=== PATIENT | male | born 1955 | race Caucasian/White ===

== ENCOUNTER 2020-07-17 20:20 | Inpatient (IN) | payer OTHER ==
[~2020-07-17] VITALS: Ht 160 cm; Wt 60.8 kg
--- NOTE | 2020-07-17 20:36 | NUR ---
ON ARRIVAL PT NOTED AT 50% ROOM AIR. PLACED PT ON 15LNRB IMPROVED TO 94%. DR. MEDINA AWARE. CALLED RT FOR HI FLOW, PER ER MD.
--- NOTE | 2020-07-17 20:38 | NUR ---
KHAI [phone]
[2020-07-17] MEDS ORDERED: CEFTRIAXONE 1GM BAG (ER ONLY) 50 ML IV ONE ×2 (20:39→21:00)
[2020-07-17] MEDS ORDERED: DEXAMETHASONE SOD PHOSPHATE 10 MG/ML VIAL ONE (20:40)
[2020-07-17] MEDS ORDERED: AZITHROMYCIN 500 MG VIAL ONE (20:40)
[2020-07-17] MEDS ORDERED: ONDANSETRON 4 MG TAB.RAPDIS ONE (20:41)
--- NOTE | 2020-07-17 20:41 | NUR ---
BIBRA FROM HOME FOR C/O SOB AND FLU LIKE SYMPTOMS FOR THE PAST FEW DAYS, AFEBRILE ON TRIAGE, NOT TESTED FOR COVID. PT WAS PLACED IN BED 5 AND OPLACED ON A MONITOR. ON NON- REBREATHER MASK . SATTING 98%.
[2020-07-17 20:46] LABS: BASOPHILS % (AUTO) 0.2 % (0.0-2.0); HEMATOCRIT 43 % (39-51); HEMOGLOBIN 14.7 g/dL (13.5-17.5); LYMPHOCYTES # (AUTO) 1.3 /CMM (0.8-4.8); MEAN CORPUSCULAR HGB CONC 34 g/dl (31.0-36.0); MEAN CORPUSCULAR VOLUME 98 fL (80-96); MONOCYTES # (AUTO) 0.6 /CMM (0.1-1.30); MONOCYTES % (AUTO) 7.1 % (2.0-12.0); NEUTROPHILS % (AUTO) 78.7 % (43.0-81.0); PLATELET COUNT (AUTO) 171 /CMM (150-450); RED BLOOD CELL COUNT(AUTO) 4.41 MIL/uL (4.5-6.0); WHITE BLOOD COUNT (AUTO) 8.9 K/uL (4.3-11.0)
--- NOTE | 2020-07-17 20:53 | NUR ---
URINE COLLECTED AND SENT TO LAB
[2020-07-17] MEDS ORDERED: DEXAMETHASONE SOD PHOSPHATE 10 MG/ML VIAL IV ONE (21:00)
[2020-07-17] MEDS ORDERED: IV NS 0.9% 500 ML IV ONE (21:00)
[2020-07-17] MEDS ORDERED: ONDANSETRON 4 MG TAB.RAPDIS SL ONE (21:00)
[2020-07-17] MEDS ORDERED: AZITHROMYCIN 500 MG in IV D5W 250 ML IV ONE (21:00)
--- NOTE | 2020-07-17 21:12 | NUR ---
covid and flu swab obtained and sent to lab
[2020-07-17 21:15] LABS: CALCIUM, SERUM 8.1 mg/dL (8.5-10.1); CARBON DIOXIDE 25 mmol/L (21-32); CHLORIDE 94 mmol/L (98-107); CREATININE 1.1 mg/dL (0.6-1.3); GLUCOSE 121 mg/dL (74-106); POTASSIUM 3.7 mmol/L (3.5-5.1); SODIUM SERUM 132 mmol/L (136-145); UREA NITROGEN, BLOOD 10 mg/dL (7-18)
--- NOTE | 2020-07-17 21:16 | NUR ---
ABG DRAWN BY RT AT BED SIDE
[2020-07-17 21:19] LABS: ABG BASE EXCESS -1.4 mmol/L; ABG OXYGEN SATURATION 97.6 % (92.0-98.5); ABG PCO2 22.9 mmHg (35.0-45.0); ABG PH 7.542 (7.350-7.450); AaDO2 585.1 mmHg; COHb 1.2 % (0.5-1.5); MetHb 0.5 % (0.0-1.5); O2Hb 95.9 % (94.0-97.0); SITE, ABG Right Radial; VENT MODE, BG 15 LNC
--- NOTE | 2020-07-17 21:22 | NUR ---
RT abg performed on [address] casillas.
--- NOTE | 2020-07-17 21:25 | NUR ---
LACTIC 2.4
[2020-07-17] MEDS ORDERED: ZOLPIDEM TARTRATE 5 MG TABLET PO PRN (21:30)
[2020-07-17] MEDS ORDERED: MAG HYDROX/AL HYDROX/SIMETH 30 ML UDC PO PRN (21:30)
[2020-07-17] MEDS ORDERED: ONDANSETRON HCL/PF 4 MG/2 ML VIAL IVP PRN (21:30)
[2020-07-17] MEDS: CEFTRIAXONE 1 G in IV D5W 50 ML IV SCH (21:30)
[2020-07-17] MEDS ORDERED: Z GUARD REMEDY 2 OZ OINT TP PRN (21:30)
[2020-07-17] MEDS: AZITHROMYCIN 500 MG in IV D5W 250 ML IV SCH (21:30)
[2020-07-17] MEDS ORDERED: MAGNESIUM HYDROXIDE 30 ML UDC PO PRN (21:30)
[2020-07-17 21:33] LABS: ALANINE AMINOTRANSFERASE 39 U/L (12-78); ALBUMIN 2.9 g/dL (3.4-5.0); ALKALINE PHOSPHATASE 81 U/L (46-116); ASPARTATE AMINOTRANSFERASE 67 U/L (15-37); B-TYPE NATRIURETIC PEPTIDE 919 PG/ML (0-125); BILIRUBIN,TOTAL 1.1 mg/dL (0.2-1.0); TOTAL PROTEIN, SERUM 7.7 g/dL (6.4-8.2)
[2020-07-17 22:45] LABS: D-DIMER 5.6 mg/L(FEU (0.17-0.50)
[2020-07-17 22:57] LABS: C-REACTIVE PROTEIN 9.4 mg/dL (0.0-0.9)
[2020-07-17 23:17] LABS: BILIRUBIN,DIRECT 0.4 mg/dL (0.0-0.2)
[2020-07-17 23:35] LABS: CREATINE KINASE, TOTAL 519 U/L (39-308); FERRITIN 3842 ng/mL (8-388)
[2020-07-17 23:38] LABS: C-REACTIVE PROTEIN 8.7 mg/dL (0.0-0.9)
--- NOTE | 2020-07-18 01:55 | NUR ---
CALLED AFTER HOUR PHARMACY TO VERIFY ADMITTING ORDERS
--- NOTE | 2020-07-18 04:33 | NUR ---
CALLED AFTER HOUR PHARMACY again TO VERIFY ADMITTING ORDERS
[2020-07-18] MEDS: IV 1/2NS 1000 ML 1,000 ML IV PRN ×2 (05:12→23:01)
[2020-07-18 08:47] LABS: HEMATOCRIT 45 % (39-51); HEMOGLOBIN 15.2 g/dL (13.5-17.5); LYMPHOCYTES # (AUTO) 0.9 /CMM (0.8-4.8); LYMPHOCYTES % (AUTO) 18.2 % (20.0-44.0); MEAN CORPUSCULAR HGB CONC 34 g/dl (31.0-36.0); MEAN CORPUSCULAR VOLUME 99 fL (80-96); MONOCYTES # (AUTO) 0.4 /CMM (0.1-1.30); MONOCYTES % (AUTO) 6.9 % (2.0-12.0); NEUTROPHILS # (AUTO) 3.9 /CMM (1.8-8.9); NEUTROPHILS % (AUTO) 74.9 % (43.0-81.0); PLATELET COUNT (AUTO) 167 /CMM (150-450); WHITE BLOOD COUNT (AUTO) 5.2 K/uL (4.3-11.0)
[2020-07-18] MEDS: DEXAMETHASONE SOD PHOSPHATE 10 MG/ML VIAL IV SCH (08:51)
[2020-07-18] MEDS: APIXABAN 5 MG TABLET PO SCH ×2 (08:52→17:20)
[2020-07-18] MEDS ORDERED: DEXAMETHASONE SOD PHOSPHATE 6 MG in IV D5W 50 ML IV SCH (09:00)
[2020-07-18 09:06] LABS: CALCIUM, SERUM 8.1 mg/dL (8.5-10.1); CREATININE 0.8 mg/dL (0.6-1.3); MAGNESIUM 2.6 mg/dL (1.8-2.4); PHOSPHORUS 4.4 mg/dL (2.5-4.9); POTASSIUM 3.9 mmol/L (3.5-5.1)
[2020-07-18] MEDS ORDERED: REMDESIVIR (CHARGED) 200 MG, *LOADING DOSE 1 EA in IV NS 0.9% 210 ML IV ONE (11:00)
--- NOTE | 2020-07-18 11:48 | NUR ---
PATIENT ON 15LPM VIA NRB WITH SPO2 95%, NO DISTRESS NOTED. UNABLE TO GIVE REMDESIVIR AT THIS TIME, NO IV PUMP AVAILABLE, REQUESTED FROM [facility].
--- NOTE | 2020-07-18 14:08 | NUR ---
PROVIDED FOOD TRAY. PATIENT REFUSING PLASMA BECAUSE HE'S JEHOVAS WITNESS. INFORMED AYAN SAUCEDA DNP.
[2020-07-18 15:37] LABS: D-DIMER 13.87 mg/L(FEU (0.17-0.50)
--- NOTE | 2020-07-18 20:16 | NUR ---
pt remains in bed, able to prone, breathing even and unlabored on 12 NC, no report of distress or discomfort. med given will continue to monitor
[2020-07-18] MEDS: CEFTRIAXONE 1 G in IV D5W 50 ML IV SCH (20:31)
[2020-07-18] MEDS: AZITHROMYCIN 500 MG in IV D5W 250 ML IV SCH (20:33)
[2020-07-18 22:48] LABS: THYROID STIMULATING HORMONE 0.233 uIU/mL (0.358-3.74)
--- NOTE | 2020-07-19 01:39 | NUR ---
PT ASSISTED TO BEDSIDE COMODE, BREATHIGN EVEN AND UNLABORED ON 10L NON REBREATHER, NO COMPLAINT OF PAIN OR DISCOMFORT
[2020-07-19 04:01] LABS: BASOPHILS % (AUTO) 0.1 % (0.0-2.0); HEMATOCRIT 41 % (39-51); HEMOGLOBIN 13.8 g/dL (13.5-17.5); LYMPHOCYTES # (AUTO) 0.5 /CMM (0.8-4.8); LYMPHOCYTES % (AUTO) 6.3 % (20.0-44.0); MEAN CORPUSCULAR HGB CONC 34 g/dl (31.0-36.0); MEAN CORPUSCULAR VOLUME 99 fL (80-96); MONOCYTES # (AUTO) 0.7 /CMM (0.1-1.30); MONOCYTES % (AUTO) 9.4 % (2.0-12.0); NEUTROPHILS # (AUTO) 6.2 /CMM (1.8-8.9); NEUTROPHILS % (AUTO) 84.2 % (43.0-81.0); PLATELET COUNT (AUTO) 191 /CMM (150-450); RED BLOOD CELL COUNT(AUTO) 4.14 MIL/uL (4.5-6.0); WHITE BLOOD COUNT (AUTO) 7.4 K/uL (4.3-11.0)
[2020-07-19 04:20] LABS: ALBUMIN 2.4 g/dL (3.4-5.0); BILIRUBIN,DIRECT 0.4 mg/dL (0.0-0.2); BILIRUBIN,TOTAL 1.1 mg/dL (0.2-1.0); CALCIUM, SERUM 8.4 mg/dL (8.5-10.1); CREATININE 0.9 mg/dL (0.6-1.3); POTASSIUM 4.5 mmol/L (3.5-5.1); TOTAL PROTEIN, SERUM 6.5 g/dL (6.4-8.2)
--- NOTE | 2020-07-19 05:42 | NUR ---
called in report to Roland mark
[2020-07-19 06:35] VITALS: BP 145/92
--- NOTE | 2020-07-19 06:35 | NUR ---
COPPER FLOTATION OPERATOR NOTES PATIENT TRANSFERRED FROM ER VIA ACLS PROTOCOL. ON 15L NONREBREATHER; PULSE OX READING 89%; BREATHING LABORED WITH SHORTNESS OF BREATH. PATIENT DENIES PAIN AT THIS TIME. TELE MONITOR READING NSR, HEART RATE 77. IV PRESENT ON RIGHT AC, SIZE 18, INTACT & PATENT WITH 1/2 NS RUNNING AT 75 ML/HR. SAFETY MEASURES IN PLACE AND PATIENT'S NEEDS MET. BED LOCKED, HOB ELEVATED, SIDE RAILS X2, CALL LIGHT WITHIN REACH. WILL CONTINUE TO MONITOR. VITAL SIGNS - BP: 145/92, HR: 90, RR: 22, T: 98.3, SPO2: 89% ON 15L NONREBREATHER
--- NOTE | 2020-07-19 07:30 | NUR ---
GANG HEAD SAW OPERATOR CLOSING NOTES PATIENT AWAKE IN BED. A/OX4. ON 15L NONREBREATHER. IV REMAINS INTACT & PATENT WITH 1/2 NS RUNNING AT 75 ML/HR. SAFETY MEASURES IN PLACE AND PATIENT'S NEEDS MET. ENDORSED TO DAY SHIFT BAND SAW RUNNER AND PLAN OF CARE.
--- NOTE | 2020-07-19 07:35 | NUR ---
RN NOTES PATIENT NEW ADMIN RECEIVED ALERT ORIENTED X 4 PUPILS EQUAL AND REACTIVE TO LIGHT AND ACCOMMODATION. PT IS ON 15L OF OXYGEN VIA NONREBREATHER; PULSE OX READING 89%; BREATHING LABORED WITH SHORTNESS OF BREATH. PATIENT DENIES PAIN AT THIS TIME. TELE MONITOR READING NSR, HEART RATE 77. IV PRESENT ON RIGHT AC, SIZE 18, INTACT & PATENT NO REDNESS OR SWELLING AT SITE WITH 1/2 NS RUNNING AT 75 ML/HR. PT AMBULATORY WITHOUT ASSISTANCE, SKIN IS WARM AND DRY TO THE TOUCH NO EDEMA NOTED NO DISCOLORATION NOTED. ABDOMEN IS NON TENDER NON DISTENDED UPON PALPATION ACTIVE BOWEL SOUNDS HEARD IN ALL FOUR QUADRANTS UPON AUSCULTATION. LUNGS SOUNDS ARE DIMINISHED BILATERALLY UPON AUSCULTATION CHEST MOVEMENTS ARE SYMMETRICAL. SAFETY MEASURES IN PLACE AND PATIENT'S NEEDS MET. BED LOCKED, HOB ELEVATED, SIDE RAILS X2, CALL LIGHT WITHIN REACH. WILL CONTINUE TO MONITOR.
[2020-07-19 08:00] VITALS: BP 145/80
[2020-07-19] MEDS ORDERED: ENSURE ENLIVE 237 ML LIQUID (VANILLA) PO SCH (10:00)
[2020-07-19] MEDS: DEXAMETHASONE SOD PHOSPHATE 10 MG/ML VIAL IV SCH (10:51)
[2020-07-19] MEDS: APIXABAN 5 MG TABLET PO SCH ×2 (10:51→17:37)
[2020-07-19] MEDS: REMDESIVIR (CHARGED) 100 MG in IV NS 0.9% 230 ML IV SCH (11:28)
[2020-07-19 12:00] VITALS: BP 139/79
--- NOTE | 2020-07-19 18:09 | NUR ---
RN NOTES PATIENT ALERT ORIENTED X 4 PUPILS EQUAL AND REACTIVE TO LIGHT AND ACCOMMODATION. PT IS ON 15L OF OXYGEN VIA NONREBREATHER; PULSE OX READING 89%; BREATHING LABORED WITH SHORTNESS OF BREATH. PATIENT DENIES PAIN AT THIS TIME. IV PRESENT ON RIGHT AC, SIZE 18, INTACT & PATENT NO REDNESS OR SWELLING AT SITE WITH 1/2 NS RUNNING AT 75 ML/HR. PT AMBULATORY WITHOUT ASSISTANCE, SKIN IS WARM AND DRY TO THE TOUCH NO EDEMA NOTED NO DISCOLORATION NOTED. CALL LIGHT WITHIN REACH ALL NURSING NEEDS MET WILL ENDORSE CARE TO NEXT SHIFT NURSE Addendum: 07/19/20 at 2000 by SEAMUS MERLOS RN PT IS ON NON REBREATHER MASK WITH O2 AT 15L.DENIES SOB AND PT IS CALMLY DENYING ANY DISTRESS.DENIES PAIN.PT HAS BRP WITH O2 TANK.TOLERATING WELL.CALL LIGHT PLACED WITHIN REACH.
[2020-07-19] MEDS: IV 1/2NS 1000 ML 1,000 ML IV PRN (18:53)
[2020-07-19 20:54] VITALS: BP 126/75
[2020-07-19 21:00] VITALS: BP 126/75
--- NOTE | 2020-07-19 21:00 | NUR ---
TIRE SHOP MECHANIC NOTES RECEIVED REPORT FROM SEAMUS MERLOS RN,PATIENT ON BED A/O X4,BREATHING NON LABORED,ON NRB MASK AT 15L,O2 SAT 100%,SALINE LOCK RIGHT AC INTACT AND PATENT.AMBULATE WITH STEADY GAIT.PER REPORT,PATIENT IS JEHOVAS WITNESS,NO BLOOD TRANSFUSION.ISOLATION FOR DROPLET INFECTION,COVID + BOTH PCR AND RAPID.CALL LIGHT IN REACH,NEEDS ANTICIPATED.
[2020-07-19] MEDS: CEFTRIAXONE 1 G in IV D5W 50 ML IV SCH (21:35)
[2020-07-19] MEDS: AZITHROMYCIN 500 MG in IV D5W 250 ML IV SCH (21:40)
[2020-07-20] VITALS (7 sets, daily range): BP systolic 104–145; BP diastolic 67–84
--- NOTE | 2020-07-20 02:00 | NUR ---
MEDICAL OFFICER PSYCHIATRY NOTES NOTED SLIGHT REDNESS ON IV SITE.NEW SALINE LOCK PLACE ON LEFT FORE ARM #22.IVF INFUSING VIA IV PUMP.
--- NOTE | 2020-07-20 06:46 | NUR ---
CURTAIN FITTER NOTES SLEPT WITH INTERVALS,NO SOB NOTED,LATEST O2 SAT 96%.IVF INFUSING WELL ON LFA.STILL ON NRB MASK.IN BNO ACUTE DISTRESS.WILL ENDORSE TO DAY NURSE FOR PAWAN.
[2020-07-20 07:07] LABS: ALBUMIN 2.3 g/dL (3.4-5.0); BILIRUBIN,DIRECT 0.4 mg/dL (0.0-0.2); CALCIUM, SERUM 7.8 mg/dL (8.5-10.1); CREATININE 0.7 mg/dL (0.6-1.3); POTASSIUM 3.6 mmol/L (3.5-5.1); TOTAL PROTEIN, SERUM 6.2 g/dL (6.4-8.2)
--- NOTE | 2020-07-20 07:57 | NUR ---
RN NOTES PATIENT RECEIVED ALERT ORIENTED X 4 PUPILS EQUAL AND REACTIVE TO LIGHT AND ACCOMMODATION. PT IS ON 15L OF OXYGEN VIA NONREBREATHER; OX READING 89%; BREATHING IS NOT LABORED NO SHORTNESS OF BREATH. PATIENT DENIES PAIN AT THIS TIME. IV PRESENT ON RIGHT AC, SIZE 22, INTACT & PATENT NO REDNESS OR SWELLING AT SITE PT AMBULATORY WITHOUT ASSISTANCE, SKIN IS WARM AND DRY TO THE TOUCH NO EDEMA NOTED NO DISCOLORATION NOTED. BED LOCKED IN POSITION CALL LIGHT WITHIN REACH ALL NEEDS MET AT THIS TIME WILL CONTINUE TO MONITOR
[2020-07-20] MEDS: APIXABAN 5 MG TABLET PO SCH (09:27)
[2020-07-20] MEDS: DEXAMETHASONE SOD PHOSPHATE 10 MG/ML VIAL IV SCH (09:27)
[2020-07-20] MEDS: REMDESIVIR (CHARGED) 100 MG in IV NS 0.9% 230 ML IV SCH (11:21)
[2020-07-20] MEDS: ENOXAPARIN SODIUM 40 MG/0.4 ML DISP.SYRIN SQ SCH (17:46)
[2020-07-20] MEDS: IV 1/2NS 1000 ML 1,000 ML IV PRN (18:27)
--- NOTE | 2020-07-20 19:15 | NUR ---
RN NOTES: RECEIVED AWAKE ON BED, ON NON REBREATHER MASK AT 15L/MIN , IV CANNULA ON THE LEFT HAND G#22 INTACT AND PATENT IVF OF NS AT 75 ML/HR ONGOING., AMBULATORY, ABLE TO MAKE NEEDS KNOWN, ORIENTED TO UNIT AND STAFF, FALL,SAFETY AND ASPIRATION PRECAUTION OBSERVED,BE DLOW AND LOCKED, CALL LIGHT KEPT WITHIN EASY REACH.
--- NOTE | 2020-07-20 19:35 | NUR ---
ON 2ND BAG OF REMDESIVIR ,ROCEPHIN IV AND ZITHROMAX THERAPY.WITH NO A/R NOTED.NO C/O NAUSEA OR BLEEDING,SWELLING OR REDNESS ON THE IV SITE IN THE LT HAND.GOES TO THE TOILET WITH O2 AT 15L NRB MASK.
[2020-07-20] MEDS: AZITHROMYCIN 500 MG in IV D5W 250 ML IV SCH (22:28)
[2020-07-20] MEDS: CEFTRIAXONE 1 G in IV D5W 50 ML IV SCH (22:28)
[2020-07-21] VITALS (7 sets, daily range): BP systolic 125–139; BP diastolic 55–92
--- NOTE | 2020-07-21 03:31 | NUR ---
RN NOTES: ABLE TO SLEEP AND REST KEPT ON CLOSE WATCH SPO2 RANGE 90-91% NO SOB, KEPT ON SEMI FOWLERS POSITION.
--- NOTE | 2020-07-21 05:04 | NUR ---
RN NOTES: -AROUND 0245 ABLE TO AMBULATE ONCE GOING TO THE BATHROOM WITH ASSISTANCE, SPO2 90-91%, WHEN ASKED HOW HE FEEL, HE SAID "IM OK"NO SOB NOTED, KEPT ON CLOSE WATCH, NEEDS ATTENDED, KEPT CALL LIGHT WITHIN EASY REACH.
--- NOTE | 2020-07-21 05:38 | NUR ---
RN NOTES: SPO2 IS FLUCTUATING 87-88% WITH 15L/MIN NON [id number] MASK,HE IMPROVED A LITTLE WHEN HE WAS PLACE IN LEFT SIDE LYING POSITION SPO2 INCREASED 90%, RT NOTIFIED. -HI FLOW OXYGEN INITIATED AT 40 LITER IN 100% O2 , LATEST SPO2-95%.
--- NOTE | 2020-07-21 07:25 | NUR ---
RN NOTES: ASSISTED GOING TO THE BATHROOM, HE SAID HE WANTS TO DO BM, KEPT IN NON REBREATHER WHILE GOING TO THE BATHROOM,ACTIVITY TOLERATED,ON CLOSE WATCH.ENDORSED FOR CONTINUITY OF CARE FOR BLOOD TEST IN THE MORNING.
--- NOTE | 2020-07-21 08:00 | NUR ---
RN NOTES PATIENT RECEIVED ALERT ORIENTED X 4 PT IS ON 40L OF 0XYGEN VIA HIGH LOW; OX READING 96; BREATHING IS NOT LABORED NO SHORTNESS OF BREATH. PATIENT DENIES PAIN AT THIS TIME. IV PRESENT ON RIGHT AC, SIZE 22, INTACT & PATENT NO REDNESS OR SWELLING AT SITE PT AMBULATORY WITHOUT ASSISTANCE. BED LOCKED IN POSITION CALL LIGHT WITHIN REACH ALL NEEDS MET AT THIS TIME WILL CONTINUE TO MONITOR
[2020-07-21 08:23] LABS: ALBUMIN 2.3 g/dL (3.4-5.0); BILIRUBIN,DIRECT 0.4 mg/dL (0.0-0.2); CALCIUM, SERUM 7.5 mg/dL (8.5-10.1); CREATININE 0.6 mg/dL (0.6-1.3); POTASSIUM 3.6 mmol/L (3.5-5.1); TOTAL PROTEIN, SERUM 5.7 g/dL (6.4-8.2)
[2020-07-21] MEDS: ASPIRIN 81 MG TAB.CHEW PO SCH (09:09)
[2020-07-21] MEDS: DEXAMETHASONE SOD PHOSPHATE 10 MG/ML VIAL IV SCH (09:10)
[2020-07-21] MEDS: IV 1/2NS 1000 ML 1,000 ML IV PRN (11:49)
[2020-07-21] MEDS: REMDESIVIR (CHARGED) 100 MG in IV NS 0.9% 230 ML IV SCH (12:02)
[2020-07-21] MEDS: ENOXAPARIN SODIUM 40 MG/0.4 ML DISP.SYRIN SQ SCH (17:27)
--- NOTE | 2020-07-21 19:05 | NUR ---
RN NOTES PATIENT ALERT ORIENTED X 4 PT IS ON 40L OF 0XYGEN VIA HIGH LOW; OX READING 96; BREATHING IS NOT LABORED NO SHORTNESS OF BREATH. PATIENT DENIES PAIN AT THIS TIME. IV PRESENT ON RIGHT AC, SIZE 22, INTACT & PATENT NO REDNESS OR SWELLING AT SITE PT AMBULATORY WITHOUT ASSISTANCE. BED LOCKED IN POSITION CALL LIGHT WITHIN REACH ALL NEEDS MET AT THIS TIME WILL WILL ENDORSE CARE TO ON COMING NURSE Addendum: 07/21/20 at 1999 by IRENE RUBIN RN REMDESIVIR THERAPY.WITH NO A/R NOTED.NO C/O NAUSEA OR BLEEDING,SWELLING OR REDNESS ON THE IV SITE IN THE LT HAND.
--- NOTE | 2020-07-21 19:15 | NUR ---
RN OPENING NOTES Pt on bed, on HFNC @ 40LPM, saturating well. Pt denies any discomfort at this time. On tele monitor with NSR noted. Kept on bed clean, dry and comfortable. On fall and aspiration precautions. Will continue to monitor accordingly.
[2020-07-21] MEDS ORDERED: AZITHROMYCIN 250 MG TABLET PO SCH (21:00)
[2020-07-21] MEDS: CEFTRIAXONE 1 G in IV D5W 50 ML IV SCH (21:45)
[2020-07-22] VITALS: BP 130/73
--- NOTE | 2020-07-22 02:15 | NUR ---
REPORTS RECEIVED FROM BOBBY FIGUEROA FOR CONTINUITY OF CARE.
--- NOTE | 2020-07-22 02:30 | NUR ---
RECEIVED PATIENT IN BED, ASLEEP. NO S/S OF DISTRESS NOTED. CALL LIGHT WITHIN REACH. BED IN LOWEST AND LOCKED POSITION. ON HFNC AT 40L/ MIN.
[2020-07-22] MEDS: IV 1/2NS 1000 ML 1,000 ML IV PRN ×2 (03:12→17:32)
[2020-07-22 04:00] VITALS: BP 167/98
[2020-07-22] MEDS: ACETAMINOPHEN 325 MG TABLET PO PRN (05:19)
--- NOTE | 2020-07-22 06:29 | NUR ---
FOOD AND NUTRITION SUPERVISOR CLOSING NOTES: PATIENT IN BED,AWAKE, A/O X4. HOB ELEVATED AT ALL TIMES. CALL LIGHT WITHIN REACH. BED IN LOWEST AND LOCKED POSITION. BED ALARM ON. FEBRILE-100.1, TYLENOL 650MG PO GIVEN AT 0519, RECHECKED AT THIS TIME-99.8. PATIENT ABLE TO TURN TO SIDES. ON HFNC WITH 94% O2 SATURATION. URINAL AT THE BEDSIDE. CONTINUOUS PULSE OXIMETER MONITORING AT THE BEDSIDE.
[2020-07-22 06:33] LABS: BASOPHILS % (AUTO) 0.1 % (0.0-2.0); EOSINOPHILS % (AUTO) 0.2 % (0.0-6.0); HEMATOCRIT 38 % (39-51); HEMOGLOBIN 12.7 g/dL (13.5-17.5); LYMPHOCYTES # (AUTO) 0.4 /CMM (0.8-4.8); LYMPHOCYTES % (AUTO) 3.1 % (20.0-44.0); MEAN CORPUSCULAR HGB CONC 34 g/dl (31.0-36.0); MEAN CORPUSCULAR VOLUME 98 fL (80-96); MONOCYTES # (AUTO) 0.2 /CMM (0.1-1.30); NEUTROPHILS # (AUTO) 11.6 /CMM (1.8-8.9); NEUTROPHILS % (AUTO) 94.6 % (43.0-81.0); PLATELET COUNT (AUTO) 84 /CMM (150-450); RED BLOOD CELL COUNT(AUTO) 3.84 MIL/uL (4.5-6.0); WHITE BLOOD COUNT (AUTO) 12.3 K/uL (4.3-11.0)
[2020-07-22 06:56] LABS: ALBUMIN 2.2 g/dL (3.4-5.0); BILIRUBIN,DIRECT 0.4 mg/dL (0.0-0.2); CALCIUM, SERUM 7.5 mg/dL (8.5-10.1); CREATININE 0.7 mg/dL (0.6-1.3); POTASSIUM 3.7 mmol/L (3.5-5.1); TOTAL PROTEIN, SERUM 5.7 g/dL (6.4-8.2)
[2020-07-22 08:00] VITALS: BP 103/78
--- NOTE | 2020-07-22 08:00 | NUR ---
INDUSTRIAL INSULATOR OPENING NOTES RECEIVED PT ON BED, AAOX4, RESPONSIVE TO ALL STIMULI. NO PRESENCE OF ACUTE RESPIRATORY DISTRESS, ON HIGH FLOW 60 LPM, SOB AND DESATURATION DURING EXERTION LOWEST AT 65% PER REPORT. ABD SOFT AND NON DISTENDED WITH ACTIVE BOWEL SOUNDS. DENIES PAIN AND DISCOMFORT. SKIN WARM TO TOUCH AND DRY. IV SITE AT LEFT HAND PATENT IN FLUSHING, NO S/SX OF INFILTRATION. RUNNING 1/2 NS AT 75 ML/HR. TELE MONITOR SHOWS NSR 94. COVID POSITIVE, PPE UTILIZED PER HOSPITAL PROTOCOL. BED IN LOW LOCKED POSITION, SRX2 FOR SAFETY, CALL LIGHT WITHIN REACH. WILL CONT TO MONITOR CARE.
[2020-07-22] MEDS: ASPIRIN 81 MG TAB.CHEW PO SCH (08:06)
[2020-07-22] MEDS: DEXAMETHASONE SOD PHOSPHATE 10 MG/ML VIAL IV SCH (08:06)
[2020-07-22 08:50] LABS: LYMPHOCYTES % (MANUAL) 1 % (16-48); NEUTROPHILS % (MANUAL) 99 (42-76)
--- NOTE | 2020-07-22 09:42 | NUR ---
FABRIC SOURCER NOTES PER RT. HIGH FLOW O2 REDUCED TO 40 LPM SATING 96%.
--- NOTE | 2020-07-22 10:51 | NUR ---
COLLAR WORKER NOTES REMDESIVIR IV DUE AT 11 AM FOLLOWED UP WITH THE PHARMACY.
[2020-07-22] MEDS: REMDESIVIR (CHARGED) 100 MG in IV NS 0.9% 230 ML IV SCH (11:58)
[2020-07-22 12:00] VITALS: BP 148/92
[2020-07-22 16:00] VITALS: BP 128/62
--- NOTE | 2020-07-22 16:15 | NUR ---
BENDING SHED WORKER NOTES LOVENOX DUE AT 1700 NOT GIVEN DUE TO LOW PLATELET OF 84 TODAY, WITH CHANGES FROM 191 ON 07/21/20. NO OBSERVED BLEEDING TO PATIENT. WILL CONT TO MONITOR.
[2020-07-22] MEDS: ENOXAPARIN SODIUM 40 MG/0.4 ML DISP.SYRIN SQ SCH (16:16)
--- NOTE | 2020-07-22 19:03 | NUR ---
INTERIOR MECHANIC CLOSING NOTES PT AAOX4. TOLERATING HIGH FLOW 40 AT 96%, FIO2 @100%, DESATURATION LOW 40% IN EXERTION(AMBULATION, TRANSFER). BM TODAY. DENIES PAIN AND DISCOMFORT. NO NEW SKIN BREAKDOWN. IV SITE AT LEFT HAND #22. SITE WITH NO S/SX OF INFILTRATION. COVID+ WITH PPE UTILIZED PROPERLY. TELE MONITOR SHOWS NSR TO SINUS TACHYCARDIA HIGHEST 130. ALL CARE ATTENDED. ENDORSED CARE TO NEXT SHIFT.
--- NOTE | 2020-07-22 19:30 | NUR ---
SPIKE MACHINE FEEDER NOTES PATIENT IN BED, AWAKE, ALERT AND ORIENTED X 4. BREATHING EVEN AND UNLABORED ON HIGH FLOW NC 40LPM. SHOWS NO SIGNS OF ACUTE RESPIRATORY DISTRESS. NO ACUTE PAIN. TELE NRS AND ST. IV ON L HAND 22G RUNNING 1/2 NS AT 75ML/HR. SHOWS NO SIGNS OF INFILTRATION, NO REDNESS. ITS CLEAN DRY AND INTACT. SAFETY PRECAUTIONS IN PLACE. BED IN LOWEST POSITION, LOCKED, AND CALL LIGHT KEPT WITHIN REACH. WILL CONTINUE TO MONITOR.
[2020-07-22 20:00] VITALS: BP 131/84
[2020-07-22] MEDS: CEFTRIAXONE 1 G in IV D5W 50 ML IV SCH (20:40)
--- NOTE | 2020-07-22 21:00 | NUR ---
BILLING ASSOCIATE NOTES RT CHANGED O2 TO 60LPM. PT WAS DESAT AFTER AMBULATING TO THE BATHROOM. O2 WAS IN THE 70'S.
[2020-07-23] VITALS: BP 107/61
[2020-07-23 04:00] VITALS: BP 148/56
[2020-07-23] MEDS: IV 1/2NS 1000 ML 1,000 ML IV PRN (05:59)
--- NOTE | 2020-07-23 06:33 | NUR ---
HERBICIDE SERVICE SALES REPRESENTATIVE NOTES PATIENT IN BED, ASLEEP, ALERT AND ORIENTED X 4. BREATHING EVEN AND UNLABORED ON HIGH FLOW NC 60LPM. SHOWS NO SIGNS OF ACUTE RESPIRATORY DISTRESS. NO ACUTE PAIN. TELE NRS AND ST. IV ON L HAND 22G RUNNING 1/2 NS AT 75ML/HR. SHOWS NO SIGNS OF INFILTRATION, NO REDNESS. ITS CLEAN DRY AND INTACT. ALL DUE MEDICATIONS GIVEN. SAFETY PRECAUTIONS IN PLACE. BED IN LOWEST POSITION, LOCKED, AND CALL LIGHT KEPT WITHIN REACH. WILL ENDORSE TO ONCOMING NURSE.
[2020-07-23 06:44] LABS: ALBUMIN 2.2 g/dL (3.4-5.0); BILIRUBIN,DIRECT 0.4 mg/dL (0.0-0.2); BILIRUBIN,TOTAL 1.2 mg/dL (0.2-1.0); CALCIUM, SERUM 7.9 mg/dL (8.5-10.1); CREATININE 0.7 mg/dL (0.6-1.3); POTASSIUM 4.2 mmol/L (3.5-5.1); TOTAL PROTEIN, SERUM 5.8 g/dL (6.4-8.2)
--- NOTE | 2020-07-23 07:15 | NUR ---
SHOE STICKS REPAIRER NOTES PATIENT RECEIVED IN BED, ALERT AND ORIENTED X 4, ON HIGHFLOW NASAL CANNULA AND NON-REBREATHER MASK. INFORMED PATIENT TO LAY DOWN IN PRONE POSITION. ON PROPERTY CLAIM REP, SINUS TACHY, 123. PATIENT SKIN WARM AND DRY TO TOUCH, IV ACCESS INTACT AND PATENT, INFUSING IV FLUIDS AT THIS TIME. PATIENT PRESENTING WITH NO PAIN AT THIS TIME. SAFETY PRECAUTIONS IMPLEMENTED WITH BED LOCKED, BILATERAL SIDE RAILS UP, BED ALARM ON, BED IN THE LOWEST POSITION, AND CALL LIGHT WITHIN EASY REACH, WILL CONTINUE TO MONITOR.
[2020-07-23 08:00] VITALS: BP 138/79
[2020-07-23] MEDS: ASPIRIN 81 MG TAB.CHEW PO SCH (09:28)
[2020-07-23] MEDS: DEXAMETHASONE SOD PHOSPHATE 10 MG/ML VIAL IV SCH (09:29)
[2020-07-23 12:00] VITALS: BP_SYST 136; BP_SYST 138; BP_DIAS 80
[2020-07-23] MEDS ORDERED: IV D5/ 0.9% NACL 1,000 ML IV PRN (12:00)
[2020-07-23] MEDS: APIXABAN 2.5 MG TABLET PO SCH ×2 (12:27→16:46)
[2020-07-23 16:00] VITALS: BP 119/71
--- NOTE | 2020-07-23 18:44 | NUR ---
COSTUMING SUPERVISOR NOTES PATIENT IN BED RESTING IN PRONE POSITION, ALERT AND ORIENTED X 4, ON HIGHFLOW NASAL CANNULA AND NON-REBREATHER MASK. ON LINE PERSON, SINUS TACHY, 100'S. PATIENT SKIN KEPT CLEAN, WARM AND DRY TO TOUCH, IV ACCESS INTACT AND PATENT, INFUSING IV FLUIDS D5 0/9% NS AT 50ml/hr AT THIS TIME. PATIENT PRESENTING WITH NO PAIN AT THIS TIME, NO CHEST PAIN OR PALPITATIONS AT THIS TIME. MET ALL OF PATIENT'S NEEDS. SAFETY PRECAUTIONS IMPLEMENTED WITH BED LOCKED, BILATERAL SIDE RAILS UP, BED ALARM ON, BED IN THE LOWEST POSITION, AND CALL LIGHT WITHIN EASY REACH. WILL ENDORSE PLAN OF CARE TO UPCOMING RN.
--- NOTE | 2020-07-23 19:30 | NUR ---
NEWS DEPARTMENT INTERN NOTES PATIENT IN BED, RESTING IN PRONE POSITION, ALERT AND ORIENTED X 4. BREATHING EVEN AND UNLABORED ON HIGH FLOW NC 60LPM. SHOWS NO SIGNS OF ACUTE RESPIRATORY DISTRESS. NO ACUTE PAIN. TELE NRS AND ST. IV ON L HAND 22G RUNNING D5 NS AT 75ML/HR. SHOWS NO SIGNS OF INFILTRATION, NO REDNESS. ITS CLEAN DRY AND INTACT. SAFETY PRECAUTIONS IN PLACE. BED IN LOWEST POSITION, LOCKED, AND CALL LIGHT KEPT WITHIN REACH. WILL CONTINUE TO MONITOR.
[2020-07-23 20:00] VITALS: BP 117/81
[2020-07-23] MEDS: CEFTRIAXONE 1 G in IV D5W 50 ML IV SCH (21:17)
--- NOTE | 2020-07-24 07:09 | NUR ---
LIFE INSURANCE SALES NOTES PATIENT IN BED, ASLEEP, ALERT AND ORIENTED X 4. BREATHING EVEN AND UNLABORED ON HIGH FLOW NC 60LPM. SHOWS NO SIGNS OF ACUTE RESPIRATORY DISTRESS. NO ACUTE PAIN. TELE NRS AND ST. IV ON R HAND 22G RUNNING D5 AT 75ML/HR. SHOWS NO SIGNS OF INFILTRATION, NO REDNESS. ITS CLEAN DRY AND INTACT. ALL DUE MEDICATIONS GIVEN. SAFETY PRECAUTIONS IN PLACE. BED IN LOWEST POSITION, LOCKED, AND CALL LIGHT KEPT WITHIN REACH. WILL ENDORSE TO ONCOMING NURSE.
[2020-07-24 07:28] LABS: HEMATOCRIT 39 % (39-51); HEMOGLOBIN 13.1 g/dL (13.5-17.5); LYMPHOCYTES # (AUTO) 0.5 /CMM (0.8-4.8); LYMPHOCYTES % (AUTO) 3.3 % (20.0-44.0); MEAN CORPUSCULAR HGB CONC 33 g/dl (31.0-36.0); MEAN CORPUSCULAR VOLUME 100 fL (80-96); MONOCYTES # (AUTO) 0.1 /CMM (0.1-1.30); MONOCYTES % (AUTO) 0.5 % (2.0-12.0); NEUTROPHILS # (AUTO) 15.3 /CMM (1.8-8.9); NEUTROPHILS % (AUTO) 96.2 % (43.0-81.0); PLATELET COUNT (AUTO) 51 /CMM (150-450); RED BLOOD CELL COUNT(AUTO) 3.96 MIL/uL (4.5-6.0); WHITE BLOOD COUNT (AUTO) 15.9 K/uL (4.3-11.0)
[2020-07-24 07:54] LABS: ALBUMIN 2.2 g/dL (3.4-5.0); BILIRUBIN,TOTAL 1.4 mg/dL (0.2-1.0); CALCIUM, SERUM 8.1 mg/dL (8.5-10.1); CREATININE 0.6 mg/dL (0.6-1.3); POTASSIUM 4.3 mmol/L (3.5-5.1); TOTAL PROTEIN, SERUM 6.1 g/dL (6.4-8.2)
--- NOTE | 2020-07-24 07:55 | NUR ---
MULTIFOCAL LENS ASSEMBLER OPEN NOTES PATIENT SLEEPING PRONE POSITION IN BED, WITH NO SIGNS OF DISTRESS ON HIGH FLOW 60 L 90-94%. IV R HAND #22G INTACT RUNNING D5 NS AT 50 ML/HR. NO COMPLAIN OF PAIN AT THIS TIME. TELE MONITOR. SAFETY MEASURES ARE APPLIED, BED IS IN LOW POSITION SIDE RAILS UP X 2. CALL LIGHT WITHIN REACH. WILL CONTINUE TO MONITOR.
[2020-07-24 08:00] VITALS: BP 100/72
[2020-07-24] MEDS: APIXABAN 2.5 MG TABLET PO SCH (09:00)
[2020-07-24] MEDS: ASPIRIN 81 MG TAB.CHEW PO SCH (09:00)
--- NOTE | 2020-07-24 09:19 | NUR ---
HELD ASPIRIN AND ELIQUIS PER AYAN DRILLER AND REAMER, PATIENT PLATELET COUNT IS LOW 51. WILL CONTINUE TO MONITOR.
[2020-07-24] MEDS: DEXAMETHASONE SOD PHOSPHATE 10 MG/ML VIAL IV SCH (09:22)
[2020-07-24 09:55] LABS: LYMPHOCYTES % (MANUAL) 4 % (16-48); MONOCYTES % (MANUAL) 2 % (0-11.0); NEUTROPHILS % (MANUAL) 94 (42-76)
[2020-07-24 12:00] VITALS: BP 113/71
--- NOTE | 2020-07-24 12:40 | NUR ---
ADMINISTER TYLENOL TEMP 98.9. WILL CONTINUE TO MONITOR.
[2020-07-24] MEDS: ACETAMINOPHEN 325 MG TABLET PO PRN ×2 (12:45→21:53)
--- NOTE | 2020-07-24 13:44 | NUR ---
TEMP 98.1 F ORAL
[2020-07-24 16:00] VITALS: BP 142/67
--- NOTE | 2020-07-24 19:35 | NUR ---
RISK CONTROL FIELD REPRESENTATIVE OPENING NOTES PATIENT SLEEPING, AWAKENS TO NAME/TOUCH. A/OX4. ON 60L/MIN HIGH FLOW OXYGEN AND NONREBREATHER MASK; PULSE OX 95%; BREATHING LABORED; NO ACUTE RESPIRATORY DISTRESS NOTED. NO C/O PAIN. TELE MONITOR READING SINUS TACH, HEART RATE 108. IV PRESENT ON LEFT WRIST, SIZE 24, INTACT & PATENT, HEP LOCKED. CONTACT/DROPLET PRECAUTIONS IN PLACE FOR COVID 19. SAFETY MEASURES IN PLACE AND PATIENT'S NEEDS MET. BED LOCKED, HOB ELEVATED, SIDE RAILS X2, CALL LIGHT WITHIN REACH. WILL CONTINUE TO MONITOR.
--- NOTE | 2020-07-24 19:44 | NUR ---
UNDERWRITING CLERKS SUPERVISOR CLOSED NOTES PATIENT SLEEPING PRONE POSITION IN BED, WITH NO SIGNS OF DISTRESS ON HIGH FLOW 60 L 90-94%. IV L WRIST HAND #24G INTACT SL. NO COMPLAIN OF PAIN AT THIS TIME. TELE MONITOR ST. PATIENT CURRENTLY ON NPO. PATIENT KEPT CLEAN AND DRY. ALL NEEDS, CARE, TREATMENT,AND MEDICATIONS WERE ADMINISTERED ANTICIPATED PER ORDER. SAFETY MEASURES ARE APPLIED, BED IS IN LOW POSITION SIDE RAILS UP X 2. CALL LIGHT WITHIN REACH WILL ENDORSE TO THE STEAM CLOTHES PRESS OPERATOR NURSE.
[2020-07-24 20:00] VITALS: BP 108/65
[2020-07-24 21:24] LABS: BILIRUBIN,URINE NEGATIVE (NEGATIVE); COLOR,URINE YELLOW (YELLOW); LEUKOCYTE ESTERASE ,URINE NEGATIVE (NEGATIVE); NITRITE, URINE NEGATIVE (NEGATIVE); PROTEIN,URINE TRACE mg/dl (NEGATIVE); UGLUCOSE >=1000 mg/dL (NEGATIVE); UROBILINOGEN,URINE 0.2 EU/dL (0.2)
[2020-07-24 21:44] LABS: RBC,URINE 0-2 /HPF (0-2)
[2020-07-24 21:45] LABS: BACTERIA,URINE Rare /HPF (None Seen); SQUAMOUS EPITHELIAL CELL,UR Rare /HPF (None Seen); WBC,URINE 0-2 /HPF (0-3)
[2020-07-24] MEDS: CEFTRIAXONE 1 G in IV D5W 50 ML IV SCH (21:52)
[2020-07-25] VITALS: BP 122/68
--- NOTE | 2020-07-25 00:30 | NUR ---
WEIGHMASTER LEAD NOTE PATIENT SLEEPING IN PRONE POSITION. NO S/S OF ACUTE RESPIRATORY DISTRESS; ON 60LPM HIGHFLOW AND NONREBREATHER; PULSE OX READING 98%. TELE MONITOR READING SINUS RHYTHM, HEART RATE 77. WILL CONTINUE TO MONITOR.
[2020-07-25 04:00] VITALS: BP 107/72
--- NOTE | 2020-07-25 07:04 | NUR ---
FIRE EATER CLOSING NOTES PATIENT SLEEPING IN PRONE POSITION. A/OX4. ON 60L/MIN HIGH FLOW OXYGEN AND NONREBREATHER MASK; PULSE OX 98%; NO ACUTE RESPIRATORY DISTRESS NOTED. NO S/S PAIN NOTED. TELE MONITOR READING SINUS RHYTHM. IV PRESENT ON LEFT WRIST, SIZE 24, INTACT & PATENT, HEP LOCKED. SAFETY MEASURES IN PLACE AND PATIENT'S NEEDS MET. BED LOCKED, SIDE RAILS X2, CALL LIGHT WITHIN REACH. WILL ENDORSE TO DAY SHIFT RN PLAN OF CARE.
[2020-07-25 07:07] LABS: IMMUNOGLOBULIN A, SERUM 408 mg/dL (61-437); IMMUNOGLOBULIN G, SERUM 1418 mg/dL (603-1613)
--- NOTE | 2020-07-25 07:45 | NUR ---
AUTOMOBILE SALESMAN OPENING NOTES RECEIVED PATIENT RESTING IN BED, A/OX4. ON 60L/MIN HIGH FLOW OXYGEN AND NONREBREATHER MASK; PULSE OX 95%; BREATHING LABORED; NO ACUTE RESPIRATORY DISTRESS NOTED. NO C/O PAIN. TELE MONITOR READING SINUS TACH, HEART RATE 108. IV TO LEFT WRIST, #24, INTACT & PATENT KEPT HEP LOCKED. CONTACT/DROPLET PRECAUTIONS IN PLACE FOR COVID 19. ALL SAFETY MEASURES IN PLACE, BED IS AT LOW POSITION AND LOCKED WITH HOB ELEVATED, AND SIDE RAILS UPX2, CALL LIGHT WITHIN REACH. WILL CONTINUE TO MONITOR.
[2020-07-25 08:00] VITALS: BP 105/55
[2020-07-25 08:02] LABS: BASOPHILS % (AUTO) 0.1 % (0.0-2.0); HEMATOCRIT 42 % (39-51); HEMOGLOBIN 13.5 g/dL (13.5-17.5); LYMPHOCYTES # (AUTO) 0.5 /CMM (0.8-4.8); LYMPHOCYTES % (AUTO) 2.7 % (20.0-44.0); MEAN CORPUSCULAR HGB CONC 32 g/dl (31.0-36.0); MEAN CORPUSCULAR VOLUME 100 fL (80-96); MONOCYTES # (AUTO) 0.3 /CMM (0.1-1.30); MONOCYTES % (AUTO) 1.6 % (2.0-12.0); NEUTROPHILS # (AUTO) 16.5 /CMM (1.8-8.9); NEUTROPHILS % (AUTO) 95.6 % (43.0-81.0); RED BLOOD CELL COUNT(AUTO) 4.17 MIL/uL (4.5-6.0); WHITE BLOOD COUNT (AUTO) 17.3 K/uL (4.3-11.0)
[2020-07-25 08:10] LABS: T3, FREE 1.6 pg/mL (2.0-4.4)
[2020-07-25 08:32] LABS: PLATELET COUNT (AUTO) 42 /CMM (150-450)
--- NOTE | 2020-07-25 08:32 | NUR ---
LAB CRITICAL REPORT RECEIVED CALL FROM NANDO FROM LAB WITH CRITICAL PLATELET VALUE OF 42 MD NOTIFIED
[2020-07-25] MEDS: ASPIRIN 81 MG TAB.CHEW PO SCH (08:55)
[2020-07-25] MEDS: DEXAMETHASONE SOD PHOSPHATE 10 MG/ML VIAL IV SCH (08:55)
[2020-07-25 11:19] LABS: *ANA ANTI-CENTROMERE B AB <0.2 AI (0.0-0.9); *ANA ANTI-DNA(DS) AB, QN <1 IU/mL (0-9); *ANA ANTI-JO-1 <0.2 AI (0.0-0.9); *ANA ANTICHROMATIN ANTIBODY <0.2 AI (0.0-0.9); *ANA RNP ANTIBODIES 0.8 AI (0.0-0.9); *ANA SJOGREN'S ANTI-SS-A <0.2 AI (0.0-0.9); *ANA SJOGREN'S ANTI-SS-B <0.2 AI (0.0-0.9); *ANAANTI-SCLERODERMA-70 AB <0.2 AI (0.0-0.9); *ANASMITH AB <0.2 AI (0.0-0.9)
[2020-07-25 11:43] LABS: LYMPHOCYTES % (MANUAL) 1 % (16-48); MONOCYTES % (MANUAL) 3 % (0-11.0); NEUTROPHILS % (MANUAL) 96 (42-76)
[2020-07-25 12:00] VITALS: BP 122/77
[2020-07-25] MEDS: HYDROCODONE/APAP 5/325MG TABLET PO PRN (15:30)
[2020-07-25 17:06] LABS: *SPE A/G RATIO 0.7 (0.7-1.7); *SPE ALBUMIN 2.4 g/dL (2.9-4.4); *SPE ALPHA-1-GLOBULIN 0.5 g/dL (0.0-0.4); *SPE ALPHA-2-GLOBULIN 0.6 g/dL (0.4-1.0); *SPE GLOBULIN, TOTAL 3.5 g/dL (2.2-3.9); *SPE M-SPIKE Not Observed g/dL (Not Observed); *SPEGAMMA GLOBULIN 1.4 g/dL (0.4-1.8)
--- NOTE | 2020-07-25 18:14 | NUR ---
PLAIN CLOTHES POLICE OFFICER CLOSING NOTES PATIENT RESTING IN BED, A/OX4. CONTINUES ON 60L/MIN HIGH FLOW OXYGEN, PULSE OX RANGING FROM 90-95%; NO ACUTE RESPIRATORY DISTRESS NOTED. NO S/S PAIN NOTED. TELE MONITOR READING SINUS RHYTHM. IV PRESENT ON LEFT WRIST #24, PATENT AND INTACT KEPT HEP LOCKED. ALL SAFETY MEASURES IN PLACE AND PATIENT'S NEEDS MET. BED IS AT LOWEST AND LOCKED POSITION WITH SIDE RAILS UPX2 AND CALL LIGHT WITHIN REACH. WILL ENDORSE TO ONCOMING SHIFT
--- NOTE | 2020-07-25 19:23 | NUR ---
BLOW MOULDING MACHINE OPERATOR: CONTINUITY OF CARE Patient in bed, awake. On High flow Oxygen, tolerating well, denies SOB. Refused to turned and repositioned at this time. No c/o pain. Contact/Droplet isolation maintained.
[2020-07-25 20:00] VITALS: BP 125/82
[2020-07-25 20:10] VITALS: BP 125/82
[2020-07-25] MEDS: CEFTRIAXONE 1 G in IV D5W 50 ML IV SCH (21:07)
[2020-07-26] VITALS (8 sets, daily range): BP systolic 108–123; BP diastolic 47–84
--- NOTE | 2020-07-26 06:02 | NUR ---
PLASMA SPECIALIST: END OF SHIFT REPORT Sinus Tach HR 118 in the Tele monitor. Patient is A/O x3 forgetful. Oxygen saturation in low 90's no c/o SOB, no cough. Remains on High Flow NC 60L, well tolerated. On IV Rocephin, afebrile. Had BM this shift. No c/o pain, no N/V. Contact, Droplet isolation with Eye shield protection maintained. Will endorse to oncoming RN.
[2020-07-26 06:05] LABS: CALCIUM, SERUM 8.6 mg/dL (8.5-10.1); CREATININE 0.8 mg/dL (0.6-1.3); POTASSIUM 4.6 mmol/L (3.5-5.1)
[2020-07-26 06:23] LABS: BASOPHILS # (AUTO) 0.1 /CMM (0.0-0.2); BASOPHILS % (AUTO) 0.3 % (0.0-2.0); HEMATOCRIT 41 % (39-51); HEMOGLOBIN 13.2 g/dL (13.5-17.5); LYMPHOCYTES # (AUTO) 0.3 /CMM (0.8-4.8); LYMPHOCYTES % (AUTO) 1.6 % (20.0-44.0); MEAN CORPUSCULAR HGB CONC 33 g/dl (31.0-36.0); MEAN CORPUSCULAR VOLUME 100 fL (80-96); MONOCYTES # (AUTO) 0.4 /CMM (0.1-1.30); MONOCYTES % (AUTO) 1.8 % (2.0-12.0); NEUTROPHILS # (AUTO) 19.8 /CMM (1.8-8.9); NEUTROPHILS % (AUTO) 96.3 % (43.0-81.0); RED BLOOD CELL COUNT(AUTO) 4.05 MIL/uL (4.5-6.0); WHITE BLOOD COUNT (AUTO) 20.6 K/uL (4.3-11.0)
[2020-07-26 06:39] LABS: PLATELET COUNT (AUTO) 39 /CMM (150-450)
--- NOTE | 2020-07-26 06:58 | NUR ---
OFFSET PRESSMAN: CRITICAL LAB VALUE Platelet 39. Notified Anayeli Freire NP. Will f/u with Oncology in am, and no blood thinner. Will endorse to oncoming RN.
--- NOTE | 2020-07-26 07:30 | NUR ---
RETURNED ITEM CLERK NOTES PT IN BED, AWAKE, ALERT AND ORIENTED, NO COMPLAINT OF PAIN, ON HIGH FLOW O2 ORDERED, TOLERATING WELL, NO SOB NOTED, CALL LIGHT WITHIN REACH.
[2020-07-26 08:12] LABS: IMMUNOGLOBULIN M, SERUM 69 mg/dL (20-172)
[2020-07-26] MEDS: DEXAMETHASONE SOD PHOSPHATE 10 MG/ML VIAL IV SCH (08:59)
--- NOTE | 2020-07-26 18:17 | NUR ---
WELLNESS GUIDE NOTES PT IN BED, AWAKE, ALERT AND VERBALLY RESPONSIVE, NO COMPLAINT OF PAIN, NOT IN DISTRESS, CALL LIGHT WITHIN REACH, ASSISTED WITH DINNER, PM CARE PROVIDED, ALL NEEDS ATTENDED.
--- NOTE | 2020-07-26 19:45 | NUR ---
EXPANDED DUTY DENTAL ASSISTANT OPENING NOTES RECEIVED REPORT FROM BOBBY KHALIL; WILL CONT PLAN OF CARE
[2020-07-26] MEDS: CEFTRIAXONE 1 G in IV D5W 50 ML IV SCH (20:30)
[2020-07-27] VITALS: BP 104/68
[2020-07-27 04:00] VITALS: BP 105/76
[2020-07-27 06:45] LABS: BASOPHILS % (AUTO) 0.2 % (0.0-2.0); HEMATOCRIT 42 % (39-51); HEMOGLOBIN 13.4 g/dL (13.5-17.5); LYMPHOCYTES # (AUTO) 0.3 /CMM (0.8-4.8); LYMPHOCYTES % (AUTO) 1.5 % (20.0-44.0); MEAN CORPUSCULAR HGB CONC 32 g/dl (31.0-36.0); MEAN CORPUSCULAR VOLUME 101 fL (80-96); MONOCYTES # (AUTO) 0.4 /CMM (0.1-1.30); MONOCYTES % (AUTO) 2.1 % (2.0-12.0); NEUTROPHILS # (AUTO) 20.1 /CMM (1.8-8.9); NEUTROPHILS % (AUTO) 96.2 % (43.0-81.0); RED BLOOD CELL COUNT(AUTO) 4.12 MIL/uL (4.5-6.0)
[2020-07-27 06:55] LABS: PLATELET COUNT (AUTO) 48 /CMM (150-450)
--- NOTE | 2020-07-27 07:36 | NUR ---
SUPERVISOR BOILERMAKING SHOP CLOSING NOTES PATIENT RESTING IN BED COMFORTABLY; A/OX3, SOMETIMES FORGETFUL; PATIENT TOLERATING 60LPM VIA HIGHFLOW ON 100% FIO2, NO SOB NOTED; BREATHING EVENLY AND UNLABORED; NO DISTRESS NOTED; PATIENT DENIES PAIN; PATIENT ABLE TO MAKE NEEDS KNOWN; ISOLATION PRECAUTIONS MAINTAINTED; TELE MONITOR READS SINUS RHYTHM - SINUS TACHY; R FA # 22 S/L INTACT AND PATENT; ALL NEEDS RENDERED; SAFETY PRECAUTIONS IMPLEMENTED; WILL ENDORSE PAWAN TO ONCOMING SHIFT
--- NOTE | 2020-07-27 07:45 | NUR ---
TELE/RN OPENING NOTE THE PATIENT IS RECEIVED IN BED, ALERT AND ORIENTED X2. ON HIGHFLOW OXYGEN AT 60 L AND FIO2 AT 100%. DENIES SOB. TELE BOX READING IS SINUS TACHYCARDIA 119. DENIES PAIN. RFA G 22 PATENT AND SALINE LOCKED. BED LOW AND LOCKED. SIDE RAILS UP X3. CALL LIGHT WITHIN REACH. WILL CONTINUE TO MONITOR.
[2020-07-27 08:00] VITALS: BP 104/72
[2020-07-27 08:33] LABS: LYMPHOCYTES % (MANUAL) 1 % (16-48); MONOCYTES % (MANUAL) 1 % (0-11.0); NEUTROPHILS % (MANUAL) 98 (42-76)
[2020-07-27] MEDS: DEXAMETHASONE SOD PHOSPHATE 10 MG/ML VIAL IV SCH (09:13)
[2020-07-27 12:00] VITALS: BP 114/78
[2020-07-27 16:00] VITALS: BP 121/80
--- NOTE | 2020-07-27 18:41 | NUR ---
TELE/RN CLOSING NOTE THE PATIENT IS ALERT AND ORIENTED X3 WITH EPISODES OF FORGETFULNESS. THE PATIENT IS ON HIGHFLOW OXYGEN AT 60 L AND FIO2 AT 100%. DENIES SOB. TELE BOX READING IS SINUS TACHYCARDIA.. DENIES PAIN. RFA G 22 PATENT AND SALINE LOCKED. BED LOW AND LOCKED. SIDE RAILS UP X3. CALL LIGHT WITHIN REACH. WILL CONTINUE TO MONITOR.
--- NOTE | 2020-07-27 19:30 | NUR ---
MS2/RN RECEIVED PATIENT IN BED AWAKE, ALERT, ORIENTED, COMFORTABLE, NO C/O PAIN, NO DISTRESS NOTED, CALL LIGHT IN REACH. ON HIGH FLOW O2 WITH NRM. FALL PRECAUTIONS PER PROTOCOL IMPLEMENTED. WILL MONITOR.
[2020-07-27 20:00] VITALS: BP 126/83
--- NOTE | 2020-07-27 23:39 | NUR ---
MS2/RN UNABLE TO ADMINISTER ROCEPHIN AT 2130, IV WAS OUT. INSERTED IV AT RT. F/A G22.
[2020-07-27] MEDS: CEFTRIAXONE 1 G in IV D5W 50 ML IV SCH (23:40)
[2020-07-28] VITALS (7 sets, daily range): BP systolic 108–124; BP diastolic 69–83
--- NOTE | 2020-07-28 06:06 | NUR ---
MS2/RN PATIENT IS AWAKE, SITTING ON THE BSC, COMFORTABLE, NO DISTRESS NOTED, ALL NEEDS ATTENDED AT THIS THIS TIME, REFUSED BLOOD DRAW. WILL CONTINUE TO MONITOR.
--- NOTE | 2020-07-28 07:10 | NUR ---
INDUSTRIAL CONVEYOR BELT REPAIRER OPENING NOTES RECEIVED PT AWAKE AT THIS TIME. PT X 1-2 WITH PERIODS OF CONFUSION. NO SOB NOTED, NO S/S OF ANY ACUTE DISTRESS NOTED. NO C/O PAIN AT THIS TIME. RESPIRATIONS ARE EVEN AND UNLABORED WITH EQUAL RISE AND FALL IN CHEST. PT NOTED ON HIGH FLOW OXYGEN @60L WITH NON REBREATHER MASK, FIO2 @100. IV ACCESS NOTED IN RCC G#22 INTACT, PATENT AND FLUSHING WELL. SAFETY PRECAUTION IN PLACE AND MAINTAINED AT ALL TIMES. BED IN LOWEST LOCKED POSITION, HOB ELEVATED, SIDE RAILS UP X 2, CALL LIGHT AND TABLE WITHIN REACH. WILL CONTINUE TO MONITOR
[2020-07-28 08:39] LABS: EOSINOPHILS % (AUTO) 0.1 % (0.0-6.0); HEMATOCRIT 45 % (39-51); HEMOGLOBIN 13.9 g/dL (13.5-17.5); LYMPHOCYTES # (AUTO) 0.7 /CMM (0.8-4.8); LYMPHOCYTES % (AUTO) 3.3 % (20.0-44.0); MEAN CORPUSCULAR HGB CONC 31 g/dl (31.0-36.0); MEAN CORPUSCULAR VOLUME 105 fL (80-96); MONOCYTES # (AUTO) 0.6 /CMM (0.1-1.30); MONOCYTES % (AUTO) 2.8 % (2.0-12.0); NEUTROPHILS % (AUTO) 93.8 % (43.0-81.0); PLATELET COUNT (AUTO) 71 /CMM (150-450); RED BLOOD CELL COUNT(AUTO) 4.27 MIL/uL (4.5-6.0); WHITE BLOOD COUNT (AUTO) 22.4 K/uL (4.3-11.0)
[2020-07-28 12:42] LABS: LYMPHOCYTES % (MANUAL) 5 % (16-48); MONOCYTES % (MANUAL) 3 % (0-11.0); NEUTROPHILS % (MANUAL) 92 (42-76)
--- NOTE | 2020-07-28 12:54 | NUR ---
RN NOTES TITRATED O2 PLACED PATIENT ON 15L NON REBREATHER MASK, O2 SAT WENT DOWN TO 79%. PLACED PATIENT BACK ON HI FLOW 60 L 100% WITH 15L NON REBREATHER MASK.
--- NOTE | 2020-07-28 19:00 | NUR ---
MILL LABORER CLOSING NOTES PT AWAKE IN BED AT THIS TIME. PT REMAINED STABLE THROUGHOUT SHIFT. ALL CARE, NEED, MEDICATIONS AND TREATMENT ADMINISTERED ANTICIPATED PER ORDER. PT KEPT CLEAN AND DRY. ASPIRATION AND SAFETY PRECAUTION IN PLACE AND MAINTAINED AT ALL TIMES. BED IN LOWEST LOCKED POSITION, HOB ELEVATED, SIDE RAILS UP X 2, CALL LIGHT AND TABLE WITHIN REACH. WILL ENDORSE TO SUCCESS COACH NURSE FOR PAWAN
--- NOTE | 2020-07-28 20:00 | NUR ---
IT BUSINESS ANALYST NOTES RECEIVED ON BED A/O X 4,BREATHING NON LABORED,ON HIGH FLOW OXYGEN AT 60LITERS,ALONG WITH NON RE BREATHER MASK AT 15LITERS,O2 SAT 97%.APPEARS WEAK,SALINE LOCK LEFT FORE ARM INTACT AND PATENT.ISOLATION FOR COVID 19 POSITIVE.ST-123 ON TELE MONITOR.WILL CONTINUE TO MONITOR STATUS.
[2020-07-28] MEDS: CEFTRIAXONE 1 G in IV D5W 50 ML IV SCH (21:15)
--- NOTE | 2020-07-28 21:30 | NUR ---
TELECOM ENGINEER NOTES DUE LORETA 1GM IVPB HUNG
[2020-07-29] VITALS: BP 106/84
[2020-07-29 04:00] VITALS: BP 117/86
--- NOTE | 2020-07-29 07:08 | NUR ---
RN MEDICARE OPENING NOTES RECEIVED PT AWAKE AT THIS TIME. PT X 1-2 SOMETIMES. NO SOB NOTED, NO S/S OF ANY ACUTE DISTRESS NOTED. NO C/O PAIN AT THIS TIME. RESPIRATIONS ARE EVEN AND UNLABORED WITH EQUAL RISE AND FALL IN CHEST. PT ON EXTERNAL CARDICA MONITOR READING ST IN THE 130S. PT NOTED ON HIGH FLOW OXYGEN @60L WITH NON REBREATHER MASK, FIO2 @100. IV ACCESS NOTED IN RFA G#22 INTACT, PATENT AND FLUSHING WELL. SAFETY PRECAUTION IN PLACE AND MAINTAINED AT ALL TIMES. BED IN LOWEST LOCKED POSITION, HOB ELEVATED, SIDE RAILS UP X 2, CALL LIGHT AND TABLE WITHIN REACH. WILL CONTINUE TO MONITOR
[2020-07-29 07:26] LABS: BASOPHILS % (AUTO) 0.2 % (0.0-2.0); EOSINOPHILS % (AUTO) 0.1 % (0.0-6.0); HEMATOCRIT 43 % (39-51); HEMOGLOBIN 13.7 g/dL (13.5-17.5); LYMPHOCYTES # (AUTO) 0.3 /CMM (0.8-4.8); LYMPHOCYTES % (AUTO) 1.6 % (20.0-44.0); MEAN CORPUSCULAR HGB CONC 32 g/dl (31.0-36.0); MEAN CORPUSCULAR VOLUME 104 fL (80-96); MONOCYTES # (AUTO) 0.2 /CMM (0.1-1.30); MONOCYTES % (AUTO) 1.3 % (2.0-12.0); NEUTROPHILS # (AUTO) 18.5 /CMM (1.8-8.9); NEUTROPHILS % (AUTO) 96.8 % (43.0-81.0); PLATELET COUNT (AUTO) 71 /CMM (150-450); RED BLOOD CELL COUNT(AUTO) 4.18 MIL/uL (4.5-6.0); WHITE BLOOD COUNT (AUTO) 19.1 K/uL (4.3-11.0)
--- NOTE | 2020-07-29 07:29 | NUR ---
FUEL ISLAND ATTENDANT NOTES WITH EPISODE OF CONFUSION,STILL ON HIGH FLOW AT 60L,FIO2 100%,NO BLOOD TRANSFUSION DUE TO JEHOVA'S WITNESS.ENDORSE TO IMMACULATE RN FOR PAWAN.
[2020-07-29 07:31] LABS: CALCIUM, SERUM 8.4 mg/dL (8.5-10.1); CREATININE 1.2 mg/dL (0.6-1.3); POTASSIUM 4.4 mmol/L (3.5-5.1)
[2020-07-29 07:45] LABS: D-DIMER > 35.20 mg/L(FEU (0.17-0.50)
[2020-07-29 08:00] VITALS: BP 115/87
[2020-07-29] MEDS: ASPIRIN 81 MG TAB.CHEW PO SCH (09:36)
--- NOTE | 2020-07-29 10:00 | NUR ---
ORDERS RECEIVED FROM DR MCGOVERN TO HAVE PT OFF NON REBREATHER MASK, MAINTAIN HIGH FLOW AND MONITOR. ORDERS CARRIED OUT, WILL CONTINUE TO MONITOR
[2020-07-29 12:00] VITALS: BP 137/85
--- NOTE | 2020-07-29 13:06 | NUR ---
DR MCGOVERN UPDATED ON PT's SATURATION BETWWEN 80%-84% ON ONLY HIGH FLOW. PER DR MCGOVERN ORDER, HAVE PT ON BOTH HIGH FLOW AND NON REBREATHER. WILL CONTINUE TO MONITOR Addendum: 07/29/20 at 1310 by STEPHANIE BECK RN DR MCGOVERN UPDATED ON PT's SATURATION BETWWEN 80%-84% ON ONLY HIGH FLOW. PER DR MCGOVERN ORDER, HAVE PT ON BOTH HIGH FLOW AND NON REBREATHER. ORDERS CARRIED OUT. WILL CONTINUE TO MONITOR
[2020-07-29 13:35] LABS: LYMPHOCYTES % (MANUAL) 2 % (16-48); MONOCYTES % (MANUAL) 2 % (0-11.0); NEUTROPHILS % (MANUAL) 96 (42-76)
--- NOTE | 2020-07-29 14:00 | NUR ---
MEGHA PT's DAUGHTER CALLED AND UPDATED. WILL CONTINUE WITH PLAN OF CARE
[2020-07-29] MEDS: ENOXAPARIN SODIUM 40 MG/0.4 ML DISP.SYRIN SQ SCH (17:47)
--- NOTE | 2020-07-29 19:05 | NUR ---
AIR TRAFFIC CONTROLLER CENTER CLOSING NOTES PT AWAKE IN BED AT THIS TIME. PT REMAINED STABLE THROUGHOUT SHIFT. ALL CARE, NEED, MEDICATIONS AND TREATMENT ADMINISTERED ANTICIPATED PER ORDER. PT KEPT CLEAN AND DRY. PT PRONED ABLE. ASPIRATION AND SAFETY PRECAUTION IN PLACE AND MAINTAINED AT ALL TIMES. BED IN LOWEST LOCKED POSITION, HOB ELEVATED, SIDE RAILS UP X 2, CALL LIGHT AND TABLE WITHIN REACH. WILL ENDORSE TO ENAMEL FINISHER NURSE FOR PAWAN
[2020-07-29 20:00] VITALS: BP 117/87
--- NOTE | 2020-07-29 20:00 | NUR ---
CO FOUNDER AND CHAIRMAN OPENING NOTES RECEIVED PATIENT AWAKE, ALERT AND ORIENTED X3 WITH PERIODS OF FORGETFULNESS. REORIENTATION PROVIDED. NO SOB NOTED, NO S/SX OF ANY ACUTE DISTRESS NOTED. DENIES PAIN OR DISCOMFORT AT THIS TIME. RESPIRATIONS ARE EVEN AND UNLABORED. PT REMAINS ON EXTERNAL WARDROBE COORDINATOR READING ST IN THE 115. PATIENT NOTED ON HIGH FLOW OXYGEN @60LPM WITH NON-REBREATHER MASK, FIO2 @100%. HOB ELEVATED. IV ACCESS NOTED IN RFA G#22 INTACT, PATENT AND FLUSHING WELL. SAFETY PRECAUTIONS IN PLACE. BED IN LOWEST LOCKED POSITION, SIDE RAILS UP X2, CALL LIGHT WITHIN REACH. WILL CONTINUE TO MONITOR.
[2020-07-29] MEDS: CEFTRIAXONE 1 G in IV D5W 50 ML IV SCH (20:34)
[2020-07-30] VITALS: BP 112/87
[2020-07-30 04:00] VITALS: BP 105/82
--- NOTE | 2020-07-30 06:15 | NUR ---
PAPER COLORER CLOSING NOTES PATIENT IN BED ASLEEP, AROUSES EASILY. NO SOB NOTED, NO S/SX OF ANY ACUTE DISTRESS NOTED. DENIES PAIN OR DISCOMFORT AT THIS TIME. RESPIRATIONS ARE EVEN AND UNLABORED. PT REMAINS ON EXTERNAL ACCOUNTS RECEIVABLE CLERK READING ST IN THE 116. PATIENT ON HIGH FLOW OXYGEN @60LPM WITH NON-REBREATHER MASK, FIO2 @100%. HOB ELEVATED. IV ACCESS NOTED IN RFA G#22 INTACT, PATENT AND FLUSHING WELL. SAFETY PRECAUTIONS IN PLACE. BED IN LOWEST LOCKED POSITION, SIDE RAILS UP X2, CALL LIGHT WITHIN REACH. WILL ENDORSE TO AM SHIFT FOR CONTINUITY OF CARE.
[2020-07-30 08:00] VITALS: BP 123/60
--- NOTE | 2020-07-30 08:02 | NUR ---
CUSTOMS CONSULTANT OPENING NOTE PATIENT IS IN BED RESTING COMFORTABLY. PATIENT IS IN NO ACUTE DISTRESS. NO SOB NOTED. PATIENT IS HIGH FLOW 60 LPM. HOB ELEVATED. PATIENT BREATHING IS EVEN AND UNLABORED. PATIENT IS ON THE SATURATION EQUIPMENT OPERATOR READING ST 123. PATIENT BED ALARM IS ON. SAFETY PRECAUTIONS ARE IN PLACE. PATIENT BED IS LOCKED AND IN THE LOWEST POSITION. CALL LIGHT WITHIN REACH. WILL CONTINUE TO MONITOR.
--- NOTE | 2020-07-30 08:04 | NUR ---
COSMETIC ACCOUNT COORDINATOR OPENING NOTE PATIENT IS IN BED RESTING COMFORTABLY. PATIENT IS IN NO ACUTE DISTRESS. NO SOB NOTED. PATIENT IS ON 15L NON REBREATHER MASK. HOB ELEVATED. PATIENT BREATHING IS EVEN AND UNLABORED. PATIENT IS ON THE GEAR DESIGN ENGINEER READING SB 50. PATIENT BED ALARM IS ON. SAFETY PRECAUTIONS ARE IN PLACE. PATIENT BED IS LOCKED AND IN THE LOWEST POSITION. CALL LIGHT WITHIN REACH. WILL CONTINUE TO MONITOR. Addendum: 07/30/20 at 0809 by NELSON PRATT RN DISREGARD PATIENT NOTE, WRONG PATIENT DOCUMENT.
--- NOTE | 2020-07-30 08:05 | NUR ---
STEAMER BLOCKER OPENING NOTE PATIENT IS IN BED RESTING COMFORTABLY. PATIENT IS IN NO ACUTE DISTRESS. NO SOB NOTED. PATIENT IS ON NON REBREATHER 15 LPM.. HOB ELEVATED. PATIENT BREATHING IS EVEN AND UNLABORED. PATIENT IS ON THE WINDOW TRIMMER APPRENTICE READING SR 68. PATIENT BED ALARM IS ON. SAFETY PRECAUTIONS ARE IN PLACE. PATIENT BED IS LOCKED AND IN THE LOWEST POSITION. CALL LIGHT WITHIN REACH. WILL CONTINUE TO MONITOR. Addendum: 07/30/20 at 0810 by NELSON PRATT RN DISREGARD PATIENT NOTE, WRONG PATIENT DOCUMENTED.
[2020-07-30] MEDS: ASPIRIN 81 MG TAB.CHEW PO SCH (08:23)
[2020-07-30 10:55] LABS: BASOPHILS % (AUTO) 0.1 % (0.0-2.0); EOSINOPHILS % (AUTO) 0.6 % (0.0-6.0); HEMATOCRIT 40 % (39-51); HEMOGLOBIN 12.6 g/dL (13.5-17.5); LYMPHOCYTES # (AUTO) 0.3 /CMM (0.8-4.8); LYMPHOCYTES % (AUTO) 1.7 % (20.0-44.0); MEAN CORPUSCULAR HGB CONC 31 g/dl (31.0-36.0); MEAN CORPUSCULAR VOLUME 105 fL (80-96); MONOCYTES % (AUTO) 0.3 % (2.0-12.0); NEUTROPHILS # (AUTO) 17.6 /CMM (1.8-8.9); NEUTROPHILS % (AUTO) 97.3 % (43.0-81.0); PLATELET COUNT (AUTO) 88 /CMM (150-450); RED BLOOD CELL COUNT(AUTO) 3.83 MIL/uL (4.5-6.0); WHITE BLOOD COUNT (AUTO) 18.1 K/uL (4.3-11.0)
[2020-07-30 11:40] LABS: CALCIUM, SERUM 8.3 mg/dL (8.5-10.1); CREATININE 1.1 mg/dL (0.6-1.3); POTASSIUM 4.3 mmol/L (3.5-5.1)
[2020-07-30 12:00] VITALS: BP 121/82
[2020-07-30 12:43] LABS: BAND % (MANUAL) 2 % (0.0-5.0); LYMPHOCYTES % (MANUAL) 3 % (16-48); MONOCYTES % (MANUAL) 1 % (0-11.0); NEUTROPHILS % (MANUAL) 94 (42-76)
[2020-07-30 16:00] VITALS: BP 124/84
[2020-07-30] MEDS: ENOXAPARIN SODIUM 40 MG/0.4 ML DISP.SYRIN SQ SCH (17:22)
--- NOTE | 2020-07-30 18:57 | NUR ---
RN CLOSING NOTE PATIENT IS IN BED RESTING COMFORTABLY. PATIENT IS IN NO ACUTE DISTRESS. NO SOB NOTED. PATIENT IS ON HIGH FLOW 60 LPM AND NON-REBREATHER MASK. HOB ELEVATED. PATIENT IS ON THE LEASE ADMINISTRATOR READING SINUS TACHYCARDIA 126. PATIENT KEPT CLEAN DRY AND COMFORTABLE. THROUGHOUT THE SHIFT. PATIENTS BED ALARM IS ON. PATIENTS BED IS LOCKED AND IN THE LOWEST POSITION. CALL LIGHT WITHIN REACH. ENDORSE TO THE RADIOLOGIC TECHNICIAN NURSE FOR PAWAN.
--- NOTE | 2020-07-30 19:40 | NUR ---
ALL PURPOSE CLERK NOTES RECEIVED REPORT FROM NELSON RN AND ARSLAN RN; WILL CONT PLAN OF CARE
[2020-07-30 20:00] VITALS: BP 130/86
[2020-07-30] MEDS: CEFTRIAXONE 1 G in IV D5W 50 ML IV SCH (20:30)
[2020-07-31] VITALS: BP 108/75
[2020-07-31 04:00] VITALS: BP_SYST 121; BP_DIAS 49; BP_DIAS 79
[2020-07-31 07:19] LABS: BASOPHILS # (AUTO) 0.1 /CMM (0.0-0.2); BASOPHILS % (AUTO) 0.3 % (0.0-2.0); EOSINOPHILS % (AUTO) 0.7 % (0.0-6.0); HEMATOCRIT 38 % (39-51); HEMOGLOBIN 12.4 g/dL (13.5-17.5); LYMPHOCYTES # (AUTO) 0.4 /CMM (0.8-4.8); LYMPHOCYTES % (AUTO) 2.2 % (20.0-44.0); MEAN CORPUSCULAR HGB CONC 32 g/dl (31.0-36.0); MEAN CORPUSCULAR VOLUME 103 fL (80-96); MONOCYTES # (AUTO) 0.2 /CMM (0.1-1.30); MONOCYTES % (AUTO) 1.1 % (2.0-12.0); NEUTROPHILS # (AUTO) 15.7 /CMM (1.8-8.9); NEUTROPHILS % (AUTO) 95.7 % (43.0-81.0); PLATELET COUNT (AUTO) 104 /CMM (150-450); RED BLOOD CELL COUNT(AUTO) 3.72 MIL/uL (4.5-6.0); WHITE BLOOD COUNT (AUTO) 16.5 K/uL (4.3-11.0)
--- NOTE | 2020-07-31 07:22 | NUR ---
CAN BANDER OPERATOR CLOSING NOTES PATIENT RESTING IN BED COMFORTABLY; A/OX2-3, WITH PERIODS OF CONFUSION; BREATHING EVENLY AND UNLABORED; NO SOB NOTED; TOLERATING 60LPM VIA HIGH FLOW NC WELL; TELE MONITOR READS SINUS TACHY; R FA #22 INTACT AND PATENT; TOLERATING IVF WELL; ISOLATION PRECAUTIONS MAINTAINED; SAFETY PRECAUTIONS IMPLEMENTED; ALL NEEDS RENDERED; WILL ENDORSE CONTINUITY OF CARE TO ONCOMING SHIFT
--- NOTE | 2020-07-31 07:40 | NUR ---
TELE/RN OPENING NOTES RECEIVED PATIENT ON BED AWAKE ALERT AND ORIENTED X 2-3. PATIENT IS ON HIGH FLOW AT 60LPM TOLERATING WELL. PATIENT IN NO APPARENT RESPIRATORY DISTRESS NOTED. NO COMPLAINED OF PAIN AT THIS TIME. WILL CONTINUE TO MONITOR.
[2020-07-31 08:00] VITALS: BP 112/41
[2020-07-31 08:15] LABS: ALBUMIN 2.2 g/dL (3.4-5.0); BILIRUBIN,TOTAL 0.5 mg/dL (0.2-1.0); CALCIUM, SERUM 8.1 mg/dL (8.5-10.1); CREATININE 0.9 mg/dL (0.6-1.3); POTASSIUM 4.3 mmol/L (3.5-5.1); TOTAL PROTEIN, SERUM 6.1 g/dL (6.4-8.2)
[2020-07-31 08:28] LABS: D-DIMER 18.33 mg/L(FEU (0.17-0.50)
[2020-07-31] MEDS: ASPIRIN 81 MG TAB.CHEW PO SCH (09:18)
[2020-07-31] MEDS: HYDROCODONE/APAP 5/325MG TABLET PO PRN (10:26)
[2020-07-31 12:00] VITALS: BP 108/74
[2020-07-31 16:00] VITALS: BP 131/85
[2020-07-31] MEDS: ENOXAPARIN SODIUM 40 MG/0.4 ML DISP.SYRIN SQ SCH (17:00)
--- NOTE | 2020-07-31 17:55 | NUR ---
TELE/RN NOTES PLATELET 104 HGB 12.4 HCT 38. LOVENOX SUBCUTANEOUS WAS WITHHELD.
--- NOTE | 2020-07-31 19:20 | NUR ---
machine cutter opening notes Received Pt from morning nurse. Pt is resting in bed comfortably. Pt is alert and orientedX2-3. Respiration on high flow @ 60 LPM with fio2 100%. Pt tolerating well. No SOB. No S/S of distress noted. Tele monitor showed sinus tachy HR at 126 bpm. IV site at RFA# 22 is clean, intact, flushes well and SL. Safety precautions is maintained. Bed at low position, brakes locked, side rails upX2, HOB elevated, urinal at the bedside and call light is within reach. Will continue to monitor.
--- NOTE | 2020-07-31 19:36 | NUR ---
TELE/RN CLOSING NOTES PATIENT IS ON BED. ALERT AND ORIENTED X 2-3. PATIENT IN NO APPARENT RESPIRATORY DISTRESS NOTED. NO COMPLAINED OF PAIN AT THIS TIME. PATIENT IS ON HIGH FLOW OXYGEN AT 60 LPM FI02 100% TOLERATING WELL. TELE MONITOR READING SINUS TACHY 126-130 BPM. IV ACCESS AT RIGHT FOREARM # 22 PATENT AND INTACT. SEEN AND EXAMINED BY MD WITH ORDERS MADE AND CARRIED OUT. ALL DUE MEDICATIONS WAS ORDERS. SAFETY PRECAUTIONS WAS IN PLACED. BED IN LOWEST POSITION AND LOCKED. SIDERAILS UP X2. CALL LIGHT WITHIN REACH. WILL ENDORSED TO FILTERING MACHINE TENDER HELPER FOR PAWAN.
[2020-07-31 20:00] VITALS: BP 125/83
[2020-08-01] VITALS (14 sets, daily range): BP systolic 98–136; BP diastolic 64–83
--- NOTE | 2020-08-01 07:00 | NUR ---
coloring room man closing notes Pt is resting in bed comfortably. Pt is alert and orientedX2-3. Respiration on high flow @ 60 LPM. Pt tolerating well. No SOB. No S/S of distress noted. VS is stable. Afebrile. Tele monitor showed sinus tachy HR at 112 bpm. IV site at RFA# 22 is clean, intact, flushes well and SL. Safety precautions is maintained. Bed at low position, brakes locked, side rails upX2, HOB elevated, urinal at the bedside and call light is within reach. Will endorse to morning nurse for PAWAN.
--- NOTE | 2020-08-01 07:15 | NUR ---
RN Notes Patient Received. Patient is noted in bed, awake, alert and oriented x3. Patient is noted with episodes of confusion. Patient continues on high flow O2 at 60LPM. Patient continues on telemonitor noted to be sinus tachy. IV site noted to RFA 22G patent and intact. Safety precautions in place. Bed in low position and locked. HOB elevated. Call light within reach. Will continue plan of care as ordered.
[2020-08-01 07:32] LABS: BASOPHILS % (AUTO) 0.1 % (0.0-2.0); EOSINOPHILS % (AUTO) 1.4 % (0.0-6.0); HEMATOCRIT 36 % (39-51); HEMOGLOBIN 11.6 g/dL (13.5-17.5); LYMPHOCYTES # (AUTO) 0.4 /CMM (0.8-4.8); LYMPHOCYTES % (AUTO) 2.7 % (20.0-44.0); MEAN CORPUSCULAR HGB CONC 32 g/dl (31.0-36.0); MEAN CORPUSCULAR VOLUME 102 fL (80-96); MONOCYTES # (AUTO) 0.3 /CMM (0.1-1.30); NEUTROPHILS # (AUTO) 14.6 /CMM (1.8-8.9); NEUTROPHILS % (AUTO) 93.8 % (43.0-81.0); PLATELET COUNT (AUTO) 110 /CMM (150-450); RED BLOOD CELL COUNT(AUTO) 3.52 MIL/uL (4.5-6.0); WHITE BLOOD COUNT (AUTO) 15.5 K/uL (4.3-11.0)
[2020-08-01 07:46] LABS: CREATININE 0.7 mg/dL (0.6-1.3); POTASSIUM 4.4 mmol/L (3.5-5.1)
[2020-08-01] MEDS: ASPIRIN 81 MG TAB.CHEW PO SCH (09:32)
[2020-08-01] MEDS: ENSURE ENLIVE 237 ML LIQUID (VANILLA) PO SCH ×2 (12:20→17:34)
[2020-08-01 15:13] LABS: ABG BASE EXCESS 3.4 mmol/L; ABG OXYGEN SATURATION 88.7 % (92.0-98.5); ABG PCO2 39.4 mmHg (35.0-45.0); ABG PO2 55.6 mmHg (75.0-100.0); COHb 1.4 % (0.5-1.5); MetHb 0.3 % (0.0-1.5); O2Hb 87.2 % (94.0-97.0); SITE, ABG Right Radial; VENT MODE, BG HI FLO NC 60L 100% NRB
--- NOTE | 2020-08-01 16:30 | NUR ---
RN NOTES NOTED PATIENT TACHYPNEIC RR: 30 DESPITE OF REPOSITION IN BED. DENIES ANY C/O PAIN NOR DISCOMFORT. MONITORED O2 SAT WITH FLUCTUATION OF 86-90% ON HI FLOW 60L 100% WITH 15 L NON-REBREATHER MASK. RT AND DR. MCGOVERN AWARE. DR. MCGOVERN SEEN AND EXAMINED PATIENT WITH ORDER FOR TRANSFER TO ICU FOR POSSIBLE INTUBATION. PATIENT AGREED AND DAUGHTER SHAVON AWARE.
--- NOTE | 2020-08-01 16:45 | NUR ---
RN NOTES RECEIVED PT VIA BENJI ON HF @ 60 LPM SAT 94% POSSIBLE INTUBATION IF OXYGEN DROPS
--- NOTE | 2020-08-01 16:45 | NUR ---
RN NOTES PATIENT TRANSFERRED TO ICU FOR POSSIBLE INTUBATION. TRANSFERRED PATIENT TO ROOM 262, ICU PER ACLS PROTOCOL. BEDSIDE REPORT GIVEN TO BOBBY GONSALVES.
[2020-08-01] MEDS: ENOXAPARIN SODIUM 40 MG/0.4 ML DISP.SYRIN SQ SCH (17:39)
--- NOTE | 2020-08-01 19:15 | NUR ---
RN CLOSING NOTES PT IS RESTING IN BED . PT IS ON HIGH FLOW @60.POSSIBLE INTUBATION DAUGHTER IS AWARE. LFA #22 SALINE LOCK. BED IS HOB.SAFETY MEASUREMENTS ARE IMPLEMENTED PER HOSPITAL PROTOCOL. BED IS IN THE LOWEST POSITION, ON BRAKE, AND SIDE RAILS ARE UP X2. WILL ENDORSE TO PM NURSE FOR PAWAN
[2020-08-02] VITALS (47 sets, daily range): BP systolic 98–166; BP diastolic 66–99
[2020-08-02 05:22] LABS: BASOPHILS % (AUTO) 0.2 % (0.0-2.0); EOSINOPHILS % (AUTO) 1.5 % (0.0-6.0); HEMATOCRIT 35 % (39-51); HEMOGLOBIN 11.3 g/dL (13.5-17.5); LYMPHOCYTES # (AUTO) 0.7 /CMM (0.8-4.8); LYMPHOCYTES % (AUTO) 4.6 % (20.0-44.0); MEAN CORPUSCULAR HGB CONC 33 g/dl (31.0-36.0); MEAN CORPUSCULAR VOLUME 101 fL (80-96); MONOCYTES # (AUTO) 0.3 /CMM (0.1-1.30); MONOCYTES % (AUTO) 1.8 % (2.0-12.0); NEUTROPHILS # (AUTO) 14.3 /CMM (1.8-8.9); NEUTROPHILS % (AUTO) 91.9 % (43.0-81.0); PLATELET COUNT (AUTO) 133 /CMM (150-450); RED BLOOD CELL COUNT(AUTO) 3.43 MIL/uL (4.5-6.0); WHITE BLOOD COUNT (AUTO) 15.5 K/uL (4.3-11.0)
[2020-08-02] MEDS: ENSURE ENLIVE 237 ML LIQUID (VANILLA) PO SCH ×3 (08:00→18:00)
[2020-08-02 09:11] LABS: ABG BASE EXCESS 4.1 mmol/L; ABG OXYGEN SATURATION 89.2 % (92.0-98.5); ABG PCO2 38.7 mmHg (35.0-45.0); ABG PH 7.475 (7.350-7.450); ABG PO2 56.1 mmHg (75.0-100.0); AaDO2 618.2 mmHg; COHb 1.3 % (0.5-1.5); MetHb 0.1 % (0.0-1.5); SITE, ABG Right Radial
--- NOTE | 2020-08-02 09:21 | NUR ---
WOUND CARE CONSULT: REVIEWED CHART AND NURSING DOCUMENTATION. DISCUSSED SKIN PROTECTION WITH NURSING STAFF. MD IN AGREEMENT WITH PLAN OF CARE.
[2020-08-02] MEDS: ASPIRIN 81 MG TAB.CHEW PO SCH (09:49)
--- NOTE | 2020-08-02 09:57 | NUR ---
pt able to take PO meds this morning, wants to wait to drink his ensure. vitals stable
[2020-08-02] MEDS: ENOXAPARIN SODIUM 40 MG/0.4 ML DISP.SYRIN SQ SCH (18:00)
--- NOTE | 2020-08-02 19:00 | NUR ---
Received patient awake,alert, coherent,answers questions appropriately, + SOB,tachyneic on High Flow 60 liters /100 % FIO2 with NRM 100 % ,saturating low 90's. Calm and cooperative. On Contact/Droplet isolation + Covid .
[2020-08-03] VITALS (57 sets, daily range): BP systolic 107–162; BP diastolic 71–123
--- NOTE | 2020-08-03 | NUR ---
Neuro status remains unchanged, awake,alert, coherent . NOted to be saturating low 80's, repositioned ,encouraged slow and deep breathing ,still only saturating 80's. RT at bedside,encouraged patient to be on PRONE position, O2 Sat in the low 90's while on Prone position,patient very compliant with proning.
--- NOTE | 2020-08-03 04:00 | NUR ---
Tolerating Prone position well and saturating very well in Prone 98-99% saturation,but still with SOB ,labored breathing.
[2020-08-03 05:07] LABS: BASOPHILS # (AUTO) 0.1 /CMM (0.0-0.2); BASOPHILS % (AUTO) 0.6 % (0.0-2.0); EOSINOPHILS % (AUTO) 0.7 % (0.0-6.0); HEMATOCRIT 36 % (39-51); HEMOGLOBIN 11.5 g/dL (13.5-17.5); LYMPHOCYTES # (AUTO) 0.4 /CMM (0.8-4.8); LYMPHOCYTES % (AUTO) 2.6 % (20.0-44.0); MEAN CORPUSCULAR HGB CONC 32 g/dl (31.0-36.0); MEAN CORPUSCULAR VOLUME 103 fL (80-96); MONOCYTES # (AUTO) 0.4 /CMM (0.1-1.30); MONOCYTES % (AUTO) 2.4 % (2.0-12.0); NEUTROPHILS # (AUTO) 14.7 /CMM (1.8-8.9); NEUTROPHILS % (AUTO) 93.7 % (43.0-81.0); PLATELET COUNT (AUTO) 184 /CMM (150-450); RED BLOOD CELL COUNT(AUTO) 3.52 MIL/uL (4.5-6.0); WHITE BLOOD COUNT (AUTO) 15.6 K/uL (4.3-11.0)
[2020-08-03 05:22] LABS: CALCIUM, SERUM 8.3 mg/dL (8.5-10.1); CREATININE 0.8 mg/dL (0.6-1.3); MAGNESIUM 2.3 mg/dL (1.8-2.4)
[2020-08-03] MEDS: ENSURE ENLIVE 237 ML LIQUID (VANILLA) PO SCH ×3 (08:00→17:58)
[2020-08-03] MEDS: ASPIRIN 81 MG TAB.CHEW PO SCH (11:09)
[2020-08-03] MEDS: ENOXAPARIN SODIUM 40 MG/0.4 ML DISP.SYRIN SQ SCH (17:25)
[2020-08-04] VITALS (25 sets, daily range): BP systolic 107–161; BP diastolic 74–98
[2020-08-04 05:26] LABS: BASOPHILS % (AUTO) 0.3 % (0.0-2.0); EOSINOPHILS % (AUTO) 0.5 % (0.0-6.0); HEMATOCRIT 36 % (39-51); HEMOGLOBIN 11.7 g/dL (13.5-17.5); LYMPHOCYTES # (AUTO) 0.6 /CMM (0.8-4.8); LYMPHOCYTES % (AUTO) 3.9 % (20.0-44.0); MEAN CORPUSCULAR HGB CONC 32 g/dl (31.0-36.0); MEAN CORPUSCULAR VOLUME 104 fL (80-96); MONOCYTES # (AUTO) 0.4 /CMM (0.1-1.30); MONOCYTES % (AUTO) 2.5 % (2.0-12.0); NEUTROPHILS # (AUTO) 13.9 /CMM (1.8-8.9); NEUTROPHILS % (AUTO) 92.8 % (43.0-81.0); PLATELET COUNT (AUTO) 209 /CMM (150-450)
[2020-08-04 05:45] LABS: CALCIUM, SERUM 8.5 mg/dL (8.5-10.1); CREATININE 0.7 mg/dL (0.6-1.3); MAGNESIUM 2.4 mg/dL (1.8-2.4); PHOSPHORUS 3.7 mg/dL (2.5-4.9); POTASSIUM 3.8 mmol/L (3.5-5.1)
--- NOTE | 2020-08-04 06:11 | NUR ---
HEAT WELDER PLASTICS PT REMAINED ON HILFOW 60 L /100% W/NRB 15 L THROUGHOUT SHIFT. NO DISTRESS NOTED. PT INDEPENDENT W/ADLS SITING OR SUPINE BED.
--- NOTE | 2020-08-04 07:30 | NUR ---
BOILING HOUSE HAND OPENING NOTES RECEIVED PT IN BED. A/O X2-3. ON HIGHFLOW 60L @100%. SATURATING @92%. ON CARDIAC/LOW FAT DIET. R FA #22 AND L HAND BOTH INTACT AND PATENT. NO PAIN REPORTED AT THIS TIME. SAFETY MEASURES OBSERVED. CALL LIGHT WITHIN REACH. BED LOCKED AND AT LOWEST POSITION WITH SIDE RAILS UP X2. WILL CONTINUE TO MONITOR
[2020-08-04] MEDS: ENSURE ENLIVE 237 ML LIQUID (VANILLA) PO SCH ×3 (08:44→18:14)
[2020-08-04] MEDS: ASPIRIN 81 MG TAB.CHEW PO SCH (08:44)
[2020-08-04] MEDS: ENOXAPARIN SODIUM 40 MG/0.4 ML DISP.SYRIN SQ SCH (18:21)
--- NOTE | 2020-08-04 19:31 | NUR ---
DENTAL INTERNSHIP CLOSING NOTES PT RESTING IN BED. A/O X4. ON HIGHFLOW 60L @100%. SATURATING @95%. ON CARDIAC/LOW FAT DIET. R FA #22 AND L HAND BOTH INTACT AND PATENT. NO PAIN REPORTED AT THIS TIME. SAFETY MEASURES OBSERVED. CALL LIGHT WITHIN REACH. BED LOCKED AND AT LOWEST POSITION WITH SIDE RAILS UP X2. WILL ENDORSE TO NIGHT NURSE FOR PAWAN
--- NOTE | 2020-08-04 20:00 | NUR ---
Received patient awake oriented x3.Afebrile.ST 105.Tachypneic RR 38.Respiration even and unlabored.Maintained on High Flow 60L,100 FIO2 SPO2 92%-94%.Denies pain.Turned and repositioned.Safety precaution maintained with call light at bedside.Encouraged to call for assistance.Continue monitoring.
[2020-08-04] MEDS ORDERED: SUCCINYLCHOLINE CHLORIDE 20 MG/ML VIAL ONE (21:00)
[2020-08-04] MEDS ORDERED: ETOMIDATE 2 MG/ML VIAL ONE (21:00)
[2020-08-05] VITALS (63 sets, daily range): BP systolic 69–143; BP diastolic 35–95
[2020-08-05] MEDS: HYDROCODONE/APAP 5/325MG TABLET PO PRN (00:57)
--- NOTE | 2020-08-05 02:00 | NUR ---
Patient c/o generalized body pain.Pain medication administered verbalized relief.Bed bath rendered and complete linens changed.Verbalized comfort.Turned and repositioned.VSS.Maintained on O2 HF NC.No acute distress noted.
[2020-08-05 05:06] LABS: BASOPHILS % (AUTO) 0.2 % (0.0-2.0); EOSINOPHILS % (AUTO) 0.4 % (0.0-6.0); HEMATOCRIT 36 % (39-51); HEMOGLOBIN 11.3 g/dL (13.5-17.5); LYMPHOCYTES # (AUTO) 0.8 /CMM (0.8-4.8); LYMPHOCYTES % (AUTO) 5.7 % (20.0-44.0); MEAN CORPUSCULAR HGB CONC 32 g/dl (31.0-36.0); MEAN CORPUSCULAR VOLUME 104 fL (80-96); MONOCYTES # (AUTO) 0.5 /CMM (0.1-1.30); MONOCYTES % (AUTO) 3.1 % (2.0-12.0); NEUTROPHILS # (AUTO) 13.1 /CMM (1.8-8.9); NEUTROPHILS % (AUTO) 90.6 % (43.0-81.0); PLATELET COUNT (AUTO) 224 /CMM (150-450); WHITE BLOOD COUNT (AUTO) 14.5 K/uL (4.3-11.0)
[2020-08-05 05:36] LABS: CALCIUM, SERUM 8.9 mg/dL (8.5-10.1); CREATININE 0.9 mg/dL (0.6-1.3); MAGNESIUM 2.6 mg/dL (1.8-2.4); PHOSPHORUS 4.4 mg/dL (2.5-4.9)
--- NOTE | 2020-08-05 07:06 | NUR ---
patient resting.VS remains stable.Turned and repositioned.Safety precaution maintained. Call light at bedside.No significant change noted during the night.Will endorse to day shift for PAWAN.
[2020-08-05] MEDS: ENSURE ENLIVE 237 ML LIQUID (VANILLA) PO SCH ×3 (08:00→17:35)
[2020-08-05 08:33] LABS: ABG OXYGEN SATURATION 88.5 % (92.0-98.5); ABG PH 7.489 (7.350-7.450); COHb 1.6 % (0.5-1.5); MetHb 0.1 % (0.0-1.5); SITE, ABG Right Radial; VENT MODE, BG high flow 60 L / 100%
--- NOTE | 2020-08-05 09:40 | NUR ---
@ 0940 PT. INTUBATED BY EMMA BEGUM DUE TO LOW SPO2 AND INCREASED WORK OF BREATHING. PT INTUBATED WITH 7.5 ET TUBE SECURED @ 25 CM LIPLINE. CO2 DETECTOR CHANGED TO YELLOW COLOR WITH CLEAR BILATERAL BREATH SOUNDS POST INTUBATION. VENT SETTINGS BELOW PER DR. MCGOVERN: AC 24 VT 450ML FIO2 100% PEEP +10 VENT PLUGGED INTO RED OUTLET WITH Alarms on and functioning. eleuterioubag @ bedside. Addendum: 08/05/20 at 1004 by BORIS DIGGS RT Amended: Links added.
[2020-08-05] MEDS: PROPOFOL 100 ML IV PRN ×3 (10:04→19:55)
[2020-08-05] MEDS: ASPIRIN 81 MG TAB.CHEW PO SCH (10:28)
[2020-08-05] MEDS: NOREPINEPHRINE 8 MG in IV NS 0.9% 242 ML IV PRN ×2 (11:01→22:18)
[2020-08-05 12:15] LABS: ABG BASE EXCESS 6.7 mmol/L; ABG OXYGEN SATURATION 98.8 % (92.0-98.5); ABG PCO2 52.4 mmHg (35.0-45.0); ABG PH 7.411 (7.350-7.450); ABG PO2 149.4 mmHg (75.0-100.0); AaDO2 511.2 mmHg; COHb 1.2 % (0.5-1.5); MetHb 0.3 % (0.0-1.5); O2Hb 97.3 % (94.0-97.0); PEEP,BG 10 cm H2O; SITE, ABG Right Radial; VT, ABG 450 mL
--- NOTE | 2020-08-05 12:21 | NUR ---
fio2 titrate down to 60% per dr. maya Addendum: 08/05/20 at 1222 by BORIS DIGGS RT Amended: Links added.
--- NOTE | 2020-08-05 15:26 | NUR ---
fio2 increased to 80% due to 84% spo2. Addendum: 08/05/20 at 1528 by BORIS DIGGS RT Amended: Links added.
--- NOTE | 2020-08-05 15:30 | NUR ---
GAVE FAMILY AN UPDATE ON PATIENT'S STATUS. PATIENT IS CURRENTLY INTUBATED, PER DR MCGOVERN, RUNNING DIPRIVAN AT 50MCG/KG/MIN STARTING, PATIENT IS CURRENTLY SEDATED AND ON LEVOPHED 0.2 TO KEEP SBP >90. WILL CONTINUE TO MONITOR PATIENT FOR CHANGES.
[2020-08-05] MEDS: ENOXAPARIN SODIUM 40 MG/0.4 ML DISP.SYRIN SQ SCH (17:46)
[2020-08-05] MEDS: ACETAMINOPHEN 325 MG TABLET PO PRN (18:54)
--- NOTE | 2020-08-05 20:00 | NUR ---
HIGHWAY WORKER NOTES PATIENT CURRENTLY ON LEVOPHED DRIP FOR BP SUPPORT, HR NOTED TO BE ELEVATED, SUSTAINING 120-140BPM. STEPHANIE NOLASCO DNP NOTIFIED REGARDING FINDINGS, WITH NEW ORDER TO CHANGE PRESSOR SUPPORT TO NEOSYNEPHRINE DRIP. WILL TRANSITION PATIENT TO NEOSYNEPHRINE DRIP AND TITRATE LEVOPHEDDRIP DIRECTED FOR BP SUPPORT
--- NOTE | 2020-08-05 20:21 | NUR ---
RT NOTE PT RECEIVED INTUBATED WITH 7.5 ET TUBE @ 25 CM ON LEFT LIP LINE. CUFF INFLATED. AMBU BAG @ HOB. SX DONE, SMALL SECRETIONS NOTED. ALARMS ON AND AUDIBLE. NO DISTRESS NOTED AT THIS TIME. WILL CONTINUE TO MONITOR CLOSELY. VENT PLUGGED TO RED OUTLET. Addendum: 08/05/20 at 2020 by SLAVA ZELAYA RT Amended: Links added.
[2020-08-05] MEDS: PHENYLEPHRINE 50 MG in IV NS 0.9% 245 ML IV PRN (20:28)
--- NOTE | 2020-08-05 21:05 | NUR ---
NECKTIE TURNER NOTES PATIENT'S NECK NOTED TO BE SWOLLEN, NO PREVIOUS DOCUMENTATION, SUSPECTED SUBCUTANEOUS EMPHYSEMA. PALPABLE CREPITUS IN THE NECK AND UPPER CHEST AREA. CURRENTLY ON PEEP +10, PATIENT 134 LBS, SPO2 100%. STEPHANIE NOLASCO DNP NOTIFIED REGARDING FINDINGS. PER PROVIDER, SHE WILL ORDER STAT CXR. ALSO WITH NEW ORDER TO DROP PEEP TO +5. WILL CARRY OUT NEW ORDERS AND AWAIT CXR RESULTS. RT AT BEDSIDE, NOTIFIED REGARDING NEW ORDERS TO CHANGE PEEP TO +5. WILL CONTINUE TO CLOSELY MONITOR
--- NOTE | 2020-08-05 21:18 | NUR ---
RT NOTE CHANGED TO VC+ I-TIME OF 0.85. PEEP TO +5 PER CONSTANCE LOTTERY MANAGER ORDERS. RN CAL AWARE. NO S/S OF SOB OR INCREASED WOB. WILL CONTINUE TO MONITOR T/O SHIFT.
--- NOTE | 2020-08-05 22:00 | NUR ---
TELEPHONE CLERK NOTES CHEST XRAY RESULT RELAYED TO STEPHANIE ACOSTA, NO NEW ORDERS AT THIS TIME. WILL CONTINUE CLOSE MONITORING
[2020-08-05 22:41] LABS: ABG BASE EXCESS 2.5 mmol/L; ABG OXYGEN SATURATION 98.8 % (92.0-98.5); ABG PCO2 37.2 mmHg (35.0-45.0); ABG PH 7.466 (7.350-7.450); ABG PO2 156.7 mmHg (75.0-100.0); AaDO2 374.6 mmHg; COHb 0.2 % (0.5-1.5); MetHb 0.4 % (0.0-1.5); O2Hb 98.2 % (94.0-97.0); PEEP,BG 5 cm H2O; SITE, ABG Left Radial; VENT MODE, BG AC 24 450 80% +5; VT, ABG 450 mL
[2020-08-06] VITALS (96 sets, daily range): BP systolic 66–155; BP diastolic 47–95
[2020-08-06] MEDS: PHENYLEPHRINE 50 MG in IV NS 0.9% 245 ML IV PRN ×3 (01:42→11:08)
[2020-08-06] MEDS ORDERED: PHENYLEPHRINE 10 MG/ML VIAL ONE (04:39)
[2020-08-06 04:59] LABS: BASOPHILS % (AUTO) 0.3 % (0.0-2.0); EOSINOPHILS % (AUTO) 0.5 % (0.0-6.0); HEMATOCRIT 34 % (39-51); HEMOGLOBIN 11.1 g/dL (13.5-17.5); LYMPHOCYTES # (AUTO) 0.7 /CMM (0.8-4.8); LYMPHOCYTES % (AUTO) 4.1 % (20.0-44.0); MEAN CORPUSCULAR HGB CONC 32 g/dl (31.0-36.0); MEAN CORPUSCULAR VOLUME 105 fL (80-96); MONOCYTES # (AUTO) 0.2 /CMM (0.1-1.30); MONOCYTES % (AUTO) 1.2 % (2.0-12.0); NEUTROPHILS # (AUTO) 14.8 /CMM (1.8-8.9); NEUTROPHILS % (AUTO) 93.9 % (43.0-81.0); PLATELET COUNT (AUTO) 257 /CMM (150-450); RED BLOOD CELL COUNT(AUTO) 3.29 MIL/uL (4.5-6.0); WHITE BLOOD COUNT (AUTO) 15.8 K/uL (4.3-11.0)
[2020-08-06 05:13] LABS: CALCIUM, SERUM 7.9 mg/dL (8.5-10.1); CREATININE 1.1 mg/dL (0.6-1.3)
[2020-08-06] MEDS: ENSURE ENLIVE 237 ML LIQUID (VANILLA) PO SCH ×3 (08:00→17:08)
[2020-08-06] MEDS: ASPIRIN 81 MG TAB.CHEW PO SCH (08:26)
[2020-08-06] MEDS: PROPOFOL 100 ML IV PRN ×3 (08:26→19:23)
[2020-08-06] MEDS: PHENYLEPHRINE 100 MG in IV NS 0.9% 240 ML IV PRN (14:39)
[2020-08-06] MEDS: NOREPINEPHRINE 8 MG in IV NS 0.9% 242 ML IV PRN (16:55)
[2020-08-06] MEDS: ENOXAPARIN SODIUM 40 MG/0.4 ML DISP.SYRIN SQ SCH (17:03)
[2020-08-06] MEDS ORDERED: CEFTRIAXONE 1 G in IV D5W 50 ML IV SCH (18:00)
[2020-08-06] MEDS: VANCOMYCIN 1 GM in IV D5W 250 ML IV SCH (20:43)
--- NOTE | 2020-08-06 20:48 | NUR ---
Received patient intubated on vent AC 24 450 60% +5. On ET tube 7.5 25cm at lip. Alarms on and audible. Suctioned moderate amounts of thick li secretions. Ambu bag at bedside. Will continue to monitor. Addendum: 08/06/20 at 2049 by JOHNNIE JIMÉNEZ RT Amended: Links added.
[2020-08-07] VITALS (93 sets, daily range): BP systolic 76–145; BP diastolic 42–85
[2020-08-07] MEDS: PHENYLEPHRINE 100 MG in IV NS 0.9% 240 ML IV PRN ×3 (00:09→17:26)
[2020-08-07] MEDS: PROPOFOL 100 ML IV PRN ×7 (00:32→23:17)
[2020-08-07] MEDS: ACETAMINOPHEN 325 MG TABLET PO PRN ×3 (00:36→16:46)
[2020-08-07] MEDS: NOREPINEPHRINE 8 MG in IV NS 0.9% 242 ML IV PRN ×2 (04:04→17:26)
[2020-08-07 04:52] LABS: BASOPHILS % (AUTO) 0.2 % (0.0-2.0); EOSINOPHILS % (AUTO) 3.2 % (0.0-6.0); HEMATOCRIT 32 % (39-51); HEMOGLOBIN 10.2 g/dL (13.5-17.5); LYMPHOCYTES # (AUTO) 0.8 /CMM (0.8-4.8); MEAN CORPUSCULAR HGB CONC 32 g/dl (31.0-36.0); MEAN CORPUSCULAR VOLUME 106 fL (80-96); MONOCYTES # (AUTO) 0.2 /CMM (0.1-1.30); MONOCYTES % (AUTO) 1.1 % (2.0-12.0); NEUTROPHILS % (AUTO) 90.5 % (43.0-81.0); PLATELET COUNT (AUTO) 225 /CMM (150-450); RED BLOOD CELL COUNT(AUTO) 3.05 MIL/uL (4.5-6.0); WHITE BLOOD COUNT (AUTO) 15.5 K/uL (4.3-11.0)
--- NOTE | 2020-08-07 05:00 | NUR ---
ROLLWAY MAN NOTES FIO2 INCREASED TO 80%, PEEP INCREASED TO +8 BY RT DUE TO DESATURATION TO 80s.
[2020-08-07 05:02] LABS: CREATININE 0.8 mg/dL (0.6-1.3); MAGNESIUM 2.3 mg/dL (1.8-2.4); PHOSPHORUS 2.9 mg/dL (2.5-4.9); POTASSIUM 3.3 mmol/L (3.5-5.1)
[2020-08-07 05:21] LABS: BAND % (MANUAL) 1 % (0.0-5.0); EOSINOPHILS % (MANUAL) 2 % (0-4); LYMPHOCYTES % (MANUAL) 4 % (16-48); MONOCYTES % (MANUAL) 2 % (0-11.0); NEUTROPHILS % (MANUAL) 91 (42-76)
[2020-08-07 05:47] LABS: ABG BASE EXCESS 1.7 mmol/L; ABG OXYGEN SATURATION 86.2 % (92.0-98.5); ABG PCO2 38.6 mmHg (35.0-45.0); ABG PH 7.443 (7.350-7.450); ABG PO2 51.6 mmHg (75.0-100.0); AaDO2 333.7 mmHg; COHb 1.7 % (0.5-1.5); MetHb 0.3 % (0.0-1.5); O2Hb 84.5 % (94.0-97.0); SITE, ABG Right Radial; VENT MODE, BG AC 24 400 60% +5
--- NOTE | 2020-08-07 07:30 | NUR ---
RN INITIAL NOTES RECEIVED PT INTUBATED, ON VENT. NO RESPIRATORY DISTRESS NOTED. NO SOB NOTED. PT SEDATED, ON DIPRIVAN. PT ON SADI AND LEVOPHED DRIP WILL TITRATE ACCORDINGLY. COFFMAN IN PLACE. NO HEMATURIA NOTED. BLE ELEVATED. WILL CLOSELY MONITOR
[2020-08-07] MEDS: VANCOMYCIN 1 GM in IV D5W 250 ML IV SCH ×2 (07:50→20:53)
[2020-08-07] MEDS: ENSURE ENLIVE 237 ML LIQUID (VANILLA) PO SCH ×3 (08:00→17:27)
[2020-08-07] MEDS: ASPIRIN 81 MG TAB.CHEW PO SCH (08:39)
[2020-08-07] MEDS ORDERED: POTASSIUM CHLORIDE 20 MEQ TAB.PRT.SR PO SCH (11:30)
[2020-08-07] MEDS: HYDROCORTISONE SOD SUCCINATE 100 MG/2 ML VIAL IV SCH ×2 (15:48→21:56)
[2020-08-07] MEDS: ENOXAPARIN SODIUM 40 MG/0.4 ML DISP.SYRIN SQ SCH (15:56)
--- NOTE | 2020-08-07 18:30 | NUR ---
RN CLOSING NOTES NO SIGNIFICANT CHANGE NOTED. REMAINS INTUBATED, ON VENT. NO SOB NOTED. PT KEPT SEDATED. REMAINS ON DIPRIVAN, SADI AND LEVOPHED DRIP. BP CLOSELY MONITOR. COFFMAN IN PLACE. KEPT COMFORTABLE. WILL ENDORSE FOR CONTINUITY OF CARE
[2020-08-07] MEDS: CEFEPIME 2 GM in IV D5W 100 ML IV SCH (21:57)
--- NOTE | 2020-08-07 22:31 | NUR ---
Received patient intubated on vent AC 24 400 100% +10. On ET tube 7.5 25cm @ lip. Alarms on and audible. Suctioned small amounts of thick li secretions. Will continue to monitor. Addendum: 08/07/20 at 2233 by JOHNNIE JIMÉNEZ RT Amended: Links added.
[2020-08-08] VITALS (93 sets, daily range): BP systolic 84–145; BP diastolic 48–83
[2020-08-08] MEDS: PROPOFOL 100 ML IV PRN ×6 (03:08→20:18)
[2020-08-08] MEDS: PHENYLEPHRINE 100 MG in IV NS 0.9% 240 ML IV PRN ×2 (03:09→11:56)
[2020-08-08 04:23] LABS: BASOPHILS # (AUTO) 0.1 /CMM (0.0-0.2); BASOPHILS % (AUTO) 0.8 % (0.0-2.0); EOSINOPHILS % (AUTO) 0.1 % (0.0-6.0); HEMATOCRIT 29 % (39-51); LYMPHOCYTES # (AUTO) 0.4 /CMM (0.8-4.8); MEAN CORPUSCULAR HGB CONC 31 g/dl (31.0-36.0); MEAN CORPUSCULAR VOLUME 106 fL (80-96); MONOCYTES # (AUTO) 0.1 /CMM (0.1-1.30); MONOCYTES % (AUTO) 0.8 % (2.0-12.0); NEUTROPHILS % (AUTO) 95.3 % (43.0-81.0); PLATELET COUNT (AUTO) 163 /CMM (150-450); RED BLOOD CELL COUNT(AUTO) 2.72 MIL/uL (4.5-6.0); WHITE BLOOD COUNT (AUTO) 12.6 K/uL (4.3-11.0)
[2020-08-08 04:40] LABS: CALCIUM, SERUM 8.2 mg/dL (8.5-10.1); CREATININE 0.8 mg/dL (0.6-1.3); MAGNESIUM 2.4 mg/dL (1.8-2.4); PHOSPHORUS 2.5 mg/dL (2.5-4.9); POTASSIUM 3.7 mmol/L (3.5-5.1)
[2020-08-08] MEDS: HYDROCORTISONE SOD SUCCINATE 100 MG/2 ML VIAL IV SCH ×3 (05:08→22:20)
[2020-08-08] MEDS: CEFEPIME 2 GM in IV D5W 100 ML IV SCH ×3 (05:08→22:20)
[2020-08-08 05:24] LABS: BAND % (MANUAL) 6 % (0.0-5.0); LYMPHOCYTES % (MANUAL) 3 % (16-48); MONOCYTES % (MANUAL) 1 % (0-11.0); NEUTROPHILS % (MANUAL) 90 (42-76)
--- NOTE | 2020-08-08 05:30 | NUR ---
ADDICTIONS COUNSELOR ASSISTANT NOTES LEVOPHED DRIP TITRATED OFF
--- NOTE | 2020-08-08 06:00 | NUR ---
FARM RANCHER NOTES FIO2 TITRATED TO 60 %, PEEP REMAINS @ +10. PATIENT TOLERATING WELL, WILL MONITOR CLOSELY
[2020-08-08 06:22] LABS: ABG BASE EXCESS 0.6 mmol/L; ABG OXYGEN SATURATION 96.1 % (92.0-98.5); ABG PCO2 48.2 mmHg (35.0-45.0); ABG PH 7.357 (7.350-7.450); ABG PO2 85.9 mmHg (75.0-100.0); AaDO2 288.9 mmHg; COHb 0.7 % (0.5-1.5); MetHb 0.2 % (0.0-1.5); O2Hb 95.2 % (94.0-97.0); PEEP,BG 10 cm H2O; SITE, ABG Right Radial; VENT MODE, BG VENT AC; VT, ABG 400 mL
--- NOTE | 2020-08-08 06:30 | NUR ---
PATIENT ACCOUNTS COORDINATOR NOTES PATIENT REMAINS ORALLY INTUBATED ON MECHANICAL VENT, REMAINS ON MAX DOSE OF NEOSYNEPHRINE DRIP @ 3MCG/KG/MIN, LEVOPHED DRIP TITRATED OFF PRIOR, DIPRIVAN DRIP REMAINS @ 70 MCG/KG/MIN. WILL ENDORSE THE PATIENT TO THE AM SHIFT NURSE FOR PAWAN
--- NOTE | 2020-08-08 07:20 | NUR ---
RN INITIAL NOTES RECEIVED PT INTUBATED, ON VENT. NO RESPIRATORY DISTRESS NOTED. NO SOB NOTED. PT SEDATED, ON DIPRIVAN. PT ON SADI DRIP WILL TITRATE ACCORDINGLY. COFFMAN IN PLACE. NO HEMATURIA NOTED. BLE ELEVATED. WILL CLOSELY MONITOR
[2020-08-08] MEDS: ENSURE ENLIVE 237 ML LIQUID (VANILLA) PO SCH ×3 (08:00→17:34)
--- NOTE | 2020-08-08 08:30 | NUR ---
FIO2 TITRATE DOWN TO 50% PER DR. MCGOVERN. Addendum: 08/08/20 at 0830 by BORIS DIGGS RT Amended: Links added.
[2020-08-08] MEDS: ENOXAPARIN SODIUM 40 MG/0.4 ML DISP.SYRIN SQ SCH ×2 (08:58→16:35)
[2020-08-08] MEDS: VANCOMYCIN 1 GM in IV D5W 250 ML IV SCH ×2 (09:00→19:56)
[2020-08-08] MEDS: ASPIRIN 81 MG TAB.CHEW PO SCH (09:01)
--- NOTE | 2020-08-08 14:16 | NUR ---
fio2 increase to 60% due to 83% spo2. Addendum: 08/08/20 at 1417 by BORIS DIGGS RT Amended: Links added.
--- NOTE | 2020-08-08 18:28 | NUR ---
RN CLOSING NOTES NO SIGNIFICANT CHANGE NOTED. REMAINS INTUBATED, ON VENT. NO SOB NOTED. PT KEPT SEDATED. REMAINS ON DIPRIVAN AND SADI DRIP. BP CLOSELY MONITOR. COFFMAN IN PLACE. KEPT COMFORTABLE. WILL ENDORSE FOR CONTINUITY OF CARE
[2020-08-09] VITALS (94 sets, daily range): BP systolic 73–135; BP diastolic 43–78
[2020-08-09] MEDS: PROPOFOL 100 ML IV PRN ×5 (00:55→20:32)
[2020-08-09 04:22] LABS: BASOPHILS # (AUTO) 0.1 /CMM (0.0-0.2); BASOPHILS % (AUTO) 0.5 % (0.0-2.0); EOSINOPHILS % (AUTO) 0.1 % (0.0-6.0); HEMATOCRIT 25 % (39-51); HEMOGLOBIN 7.9 g/dL (13.5-17.5); LYMPHOCYTES # (AUTO) 0.3 /CMM (0.8-4.8); LYMPHOCYTES % (AUTO) 2.4 % (20.0-44.0); MEAN CORPUSCULAR HGB CONC 31 g/dl (31.0-36.0); MEAN CORPUSCULAR VOLUME 106 fL (80-96); MONOCYTES # (AUTO) 0.1 /CMM (0.1-1.30); MONOCYTES % (AUTO) 1.2 % (2.0-12.0); NEUTROPHILS # (AUTO) 11.6 /CMM (1.8-8.9); NEUTROPHILS % (AUTO) 95.8 % (43.0-81.0); PLATELET COUNT (AUTO) 125 /CMM (150-450); RED BLOOD CELL COUNT(AUTO) 2.38 MIL/uL (4.5-6.0); WHITE BLOOD COUNT (AUTO) 12.1 K/uL (4.3-11.0)
[2020-08-09 04:25] LABS: CALCIUM, SERUM 8.2 mg/dL (8.5-10.1); CREATININE 0.6 mg/dL (0.6-1.3); MAGNESIUM 2.2 mg/dL (1.8-2.4); PHOSPHORUS 2.2 mg/dL (2.5-4.9); POTASSIUM 3.3 mmol/L (3.5-5.1)
[2020-08-09 04:36] LABS: D-DIMER 3.29 mg/L(FEU (0.17-0.50)
--- NOTE | 2020-08-09 04:55 | NUR ---
ICU/CRANBERRY FARM SUPERVISOR PT'S VENT IS BUCKING, RT NOTIFIED. WHEN PEEP WAS DECREASED DOWN FROM 10 TO 8 THE VENT STOPS BEEPING.
[2020-08-09] MEDS: PHENYLEPHRINE 100 MG in IV NS 0.9% 240 ML IV PRN (05:16)
[2020-08-09] MEDS: CEFEPIME 2 GM in IV D5W 100 ML IV SCH ×3 (05:18→21:41)
[2020-08-09] MEDS: HYDROCORTISONE SOD SUCCINATE 100 MG/2 ML VIAL IV SCH ×3 (05:18→20:32)
[2020-08-09 06:47] LABS: BAND % (MANUAL) 1 % (0.0-5.0); LYMPHOCYTES % (MANUAL) 3 % (16-48); MONOCYTES % (MANUAL) 1 % (0-11.0); NEUTROPHILS % (MANUAL) 95 (42-76)
[2020-08-09] MEDS: ENSURE ENLIVE 237 ML LIQUID (VANILLA) PO SCH ×3 (08:00→17:35)
[2020-08-09] MEDS: VANCOMYCIN 1 GM in IV D5W 250 ML IV SCH ×2 (08:35→20:32)
[2020-08-09] MEDS: ASPIRIN 81 MG TAB.CHEW PO SCH (08:36)
[2020-08-09 08:49] LABS: ABG BASE EXCESS 0.4 mmol/L; ABG OXYGEN SATURATION 97.4 % (92.0-98.5); ABG PCO2 47.1 mmHg (35.0-45.0); ABG PH 7.361 (7.350-7.450); ABG PO2 100.3 mmHg (75.0-100.0); AaDO2 275.7 mmHg; COHb 1.6 % (0.5-1.5); MetHb 0.1 % (0.0-1.5); O2Hb 95.7 % (94.0-97.0); PEEP,BG 8 cm H2O; SITE, ABG Right Radial; VT, ABG 400 mL
--- NOTE | 2020-08-09 11:26 | NUR ---
GARFIELD received a fax from patient's daughter Phil Gaxiola regarding FMLA documents from patient's employer. Plan: GARFIELD to confirm receipt with patient's daughter and GARFIELD to provide a copy of these documents to property disposal manager Lori for MD to complete. GARFIELD remains available for all needs regarding this patient.
--- NOTE | 2020-08-09 11:31 | NUR ---
SW contacted patient's daughter Phil Gaxiola regarding FMLA documents from patient's employer. SW provided confirmation of FMLA documents and SW confirmed information to return once returned. Fax to return: . SW remains available for all needs regarding this patient.
--- NOTE | 2020-08-09 11:33 | NUR ---
SW provide copy of [place] documents for this patient to pug mill operator Lori. pug mill operator Anat verbalized understanding for patient's physician to complete. SW remains available for all needs regarding this patient.
[2020-08-09] MEDS: POTASSIUM CL. PREMIX PERIPHER. 50 ML IV SCH ×2 (12:04→13:57)
[2020-08-09] MEDS ORDERED: K PHOS NEUTRAL 250 MG TABLET PO ONE (15:00)
--- NOTE | 2020-08-09 18:36 | NUR ---
RN NOTES DR BONDS NOTIFED REGARDING COPY OF FMLA documents THAT NEEDS TO BE SIGNED .
--- NOTE | 2020-08-09 18:38 | NUR ---
RN NOTES PT FROYLAN INTUBATED , SEDATED, ON DIPRIVAN AT 40MCG/KG/NE , SADI OFF AT THIS TIME, BP STABLE, WILL ENDORSE TO PERFORMANCE IMPROVEMENT SPECIALIST NURSE FOR CONTINUITY OF CARE .
--- NOTE | 2020-08-09 19:15 | NUR ---
RN OPENING NOTES RECEIVED PT IN BED, SEDATED. ON DIPRIVAN ON MECHANICAL VENTILATION. PT HAS ETT 7.5/25 AT LIP. WITH SETTINGS AC 24 TV 400 FIO2 60% PEEP OF 8. TOLERATING WELL. SATURATING AT 93% NO S/S OF RESP DISTRESS. BREATHING IS EVEN AND UNLABORED. ON CARDIAC MONITORING PT BASELINE NSR HR OF 98 AT THIS TIME. PT IS ON DIPRIVAN AT 40MCG/KG/MIN. IV SITES FLUSHED ASEPTICALLY, ONE PORT ON PICC LINE IS OCCLUDED, NOW CLAMPED. PT HAS COFFMAN DRAINING TO GRAVITY. ISACC URINE, FREE OF SEDIMENT. PT IS ON RESTRAINTS WILL CONT TO DO CIRCULATION CHECKS. OGT CLAMPED, PT NPO DX AT THIS TIME. SAFETY MEASURES IN PLACE, HOB ELEVATED. SIDE RAILS UP X3 BED LOCKED IN LOWEST POSITION WILL CONT TO MONITOR.
--- NOTE | 2020-08-09 19:40 | NUR ---
PT REC'D ORALLY INTUBATED VIA ETT 7.5 SECURED @ 25 CM [facility] WITH THE SETTINGS OF AC 24, 400, 60%,PEEP 8. NO RESPIRATORY DISTRESS NOTED AT THIS TIME. CUFF INFLATED. SX DONE . ALARMS ARE SET AND AUDIBLE. VENT PLUGGED INTO RED OUTLET. AMBU BAG@ BEDSIDE. WILL CONTINUE TO MONITOR T/O THE SHIFT.
[2020-08-10] VITALS (30 sets, daily range): BP systolic 106–162; BP diastolic 56–81
[2020-08-10] MEDS: PROPOFOL 100 ML IV PRN ×4 (00:28→17:47)
[2020-08-10 05:20] LABS: BASOPHILS % (AUTO) 0.5 % (0.0-2.0); HEMATOCRIT 24 % (39-51); HEMOGLOBIN 7.7 g/dL (13.5-17.5); LYMPHOCYTES # (AUTO) 0.3 /CMM (0.8-4.8); LYMPHOCYTES % (AUTO) 2.6 % (20.0-44.0); MEAN CORPUSCULAR HGB CONC 32 g/dl (31.0-36.0); MEAN CORPUSCULAR VOLUME 106 fL (80-96); MONOCYTES # (AUTO) 0.2 /CMM (0.1-1.30); MONOCYTES % (AUTO) 2.1 % (2.0-12.0); NEUTROPHILS # (AUTO) 9.8 /CMM (1.8-8.9); NEUTROPHILS % (AUTO) 94.8 % (43.0-81.0); PLATELET COUNT (AUTO) 124 /CMM (150-450); RED BLOOD CELL COUNT(AUTO) 2.25 MIL/uL (4.5-6.0); WHITE BLOOD COUNT (AUTO) 10.4 K/uL (4.3-11.0)
[2020-08-10] MEDS: CEFEPIME 2 GM in IV D5W 100 ML IV SCH ×3 (05:26→22:24)
[2020-08-10] MEDS: HYDROCORTISONE SOD SUCCINATE 100 MG/2 ML VIAL IV SCH ×2 (05:26→19:57)
[2020-08-10 05:34] LABS: CREATININE 0.5 mg/dL (0.6-1.3); MAGNESIUM 2.2 mg/dL (1.8-2.4); PHOSPHORUS 3.5 mg/dL (2.5-4.9); POTASSIUM 3.3 mmol/L (3.5-5.1)
[2020-08-10 05:50] LABS: ABG BASE EXCESS 0.9 mmol/L; ABG OXYGEN SATURATION 95.1 % (92.0-98.5); ABG PCO2 52.4 mmHg (35.0-45.0); ABG PH 7.332 (7.350-7.450); ABG PO2 81.1 mmHg (75.0-100.0); AaDO2 289.1 mmHg; MetHb 0.3 % (0.0-1.5); O2Hb 92.9 % (94.0-97.0); SITE, ABG Left Brachial; VENT MODE, BG AC 24 400 60% +8
[2020-08-10 06:22] LABS: BAND % (MANUAL) 2 % (0.0-5.0); LYMPHOCYTES % (MANUAL) 3 % (16-48); MONOCYTES % (MANUAL) 2 % (0-11.0); NEUTROPHILS % (MANUAL) 93 (42-76)
--- NOTE | 2020-08-10 07:10 | NUR ---
RN CLOSING NOTES NO CHANGE IN PATIENT CONDITION. STILL SEDATED ON DIPRIVAN AND ON VENT SETTINGS ORDERED.NO CHANGE. TOLERATING WELL. NO RESP DISTRESS OR SOB NOTED. BREATHING EVEN AND UNLABORED. PT IS SATURATING 98% AND ON CARDIAC MONITORING PT IS NSR 80S. DIPRIVAN STILL RUNNING AT 40MCG/KG/MIN. BED BATH DONE. SAFETY MEASURES IN PLACE HOB ELEVATED. BED LOCKED IN LOWEST POSITION WITH BED ALARM ON. SIDE RAILS UP X3. WILL ENDORSE TO AM NURSE FOR CONT OF CARE
--- NOTE | 2020-08-10 07:30 | NUR ---
RN OPENING NOTE PT SEDATED ON DIPRIVAN AT 40MCG/KG/MINAND ON VENT SETTINGS PER MD ORDER. NO SIGN OF RESP DISTRESS OR SOB, BREATHING EVEN AND UNLABORED. PT IS SATURATING 95% AND ON CARDIAC MONITORING PT IS NSR 90S. PT HAS ONE PORT IN ALEKSANDAR PICC LINE THAT IS NOT PATENT AND IS LOCKED; ALL OTHER IV ACCESS' PATENT WITH NO SIGNS OF INFILTRATION OR INFECTION. ALL PT SAFETY MEASURES IN PLACE HOB ELEVATED. BED LOCKED IN LOWEST POSITION WITH BED ALARM ON. SIDE RAILS UP X3. WILL CONTINUE TO MONITOR
[2020-08-10] MEDS: ENSURE ENLIVE 237 ML LIQUID (VANILLA) PO SCH ×3 (08:00→18:00)
[2020-08-10] MEDS: VANCOMYCIN 1 GM in IV D5W 250 ML IV SCH ×2 (09:41→21:08)
--- NOTE | 2020-08-10 10:45 | NUR ---
RN NOTE SEDATION VACATION IMPLEMENTED PER DR MCGOVERN'S ORDER. AFTER 3 MINUTES PT SHOWS SIGNS OF DISTRESS IN WHICH I RETURNED THE PT TO PREVIOUS PROPOFOL SETTINGS. PT STABLE
[2020-08-10] MEDS: POTASSIUM CL. PREMIX PERIPHER. 50 ML IV SCH ×4 (11:00→17:01)
--- NOTE | 2020-08-10 11:00 | NUR ---
RN NOTE SPOKE TO PT'S DAUGHTER REGARDING PT'S CONDITION. ALL QUESTIONS ANSWERED TO THE DAUGHTER'S SATISFACTION
--- NOTE | 2020-08-10 11:50 | NUR ---
SW contacted patient's nurse Jimmy regarding FMLA documents that patient's physician needed to fill and sign. Jimmy reported that he would check in patient's chart as he was unable to provide response at this time. Plan: GARFIELD to follow-up with Jimmy regarding FMLA documents. SW remains available for all needs regarding this patient.
[2020-08-10] MEDS ORDERED: IV D5W 1,000 ML IV ONE (13:00)
--- NOTE | 2020-08-10 16:05 | NUR ---
GARFIELD left a message with feeder worker power unit operator to have patient's RN Jimmy to contact this SW regarding FMLA documents at extension [phone]. Plan: SW to follow-up with BOBBY Marquez regarding FMLA documents. GARIFELD remains available for all needs regarding this patient.
--- NOTE | 2020-08-10 16:26 | NUR ---
GARFIELD spoke with patient's nurse BOBBY Marquez. BOBBY Marquez reported that FMLA documentation has not been signed. Per Jimmy Marquez to contact patient's physican to sing and complete these forms. Plan: GARFIELD to follow-up on Thursday08/13/2020 regarding these FMLA documents.
--- NOTE | 2020-08-10 19:00 | NUR ---
RN CLOSING NOTE NO CHANGES TO PT STATUS DURING SHIFT. PT STILL SEDATED ON DIPRIVAN AT 40MCG/KG/MIN AND ON VENT SETTINGS PER MD ORDER. NO SIGN OF RESP DISTRESS OR SOB, BREATHING EVEN AND UNLABORED. ALL PT SAFETY MEASURES IN PLACE HOB ELEVATED. BED LOCKED IN LOWEST POSITION WITH BED ALARM ON. SIDE RAILS UP X3. WILL ENDORSE PAWAN TO ONCOMING NURSE
[2020-08-10] MEDS: ACETAMINOPHEN 325 MG TABLET PO PRN (21:18)
[2020-08-11] VITALS (24 sets, daily range): BP systolic 98–140; BP diastolic 54–74
[2020-08-11] MEDS: PROPOFOL 100 ML IV PRN ×5 (00:12→20:43)
[2020-08-11 04:49] LABS: BASOPHILS % (AUTO) 0.3 % (0.0-2.0); EOSINOPHILS % (AUTO) 0.7 % (0.0-6.0); HEMATOCRIT 23 % (39-51); HEMOGLOBIN 7.3 g/dL (13.5-17.5); LYMPHOCYTES # (AUTO) 0.4 /CMM (0.8-4.8); LYMPHOCYTES % (AUTO) 3.5 % (20.0-44.0); MEAN CORPUSCULAR HGB CONC 32 g/dl (31.0-36.0); MEAN CORPUSCULAR VOLUME 106 fL (80-96); MONOCYTES # (AUTO) 0.2 /CMM (0.1-1.30); MONOCYTES % (AUTO) 1.7 % (2.0-12.0); NEUTROPHILS # (AUTO) 9.4 /CMM (1.8-8.9); NEUTROPHILS % (AUTO) 93.8 % (43.0-81.0); PLATELET COUNT (AUTO) 101 /CMM (150-450); RED BLOOD CELL COUNT(AUTO) 2.17 MIL/uL (4.5-6.0)
[2020-08-11 05:07] LABS: CALCIUM, SERUM 8.1 mg/dL (8.5-10.1); CREATININE 0.5 mg/dL (0.6-1.3); MAGNESIUM 2.4 mg/dL (1.8-2.4); POTASSIUM 2.9 mmol/L (3.5-5.1)
[2020-08-11] MEDS: CEFEPIME 2 GM in IV D5W 100 ML IV SCH ×3 (05:08→21:40)
--- NOTE | 2020-08-11 06:30 | NUR ---
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 VENT SETTINGS ORDERED AND TOLERATED WELL. SR-ST ON CREDIT COLLECTIONS SPECIALIST. BP WITHIN BASELINE. TYLENOL GIVEN FOR ELEVATED TEMP WT GOOD EFFECT. COOLING MEASURES RENDERED. REMAIN SEDATED ON DIPRIVAN. BILAT. WRIST RESTRAINTS IN PLACE TO PREVENT SELF EXTUBATION. SKIN AND CIRCULATION WNL. GOOD URINE OUTPUT VIA F/C. HOB AT 35 DEGREES. BED IN LOWEST POSITION AND LOCKED. SIDE RAILS UP X2. BED ALARM ON. WILL CONTINUE TO MONITOR.
[2020-08-11 06:39] LABS: BAND % (MANUAL) 9 % (0.0-5.0); EOSINOPHILS % (MANUAL) 3 % (0-4); LYMPHOCYTES % (MANUAL) 5 % (16-48); MONOCYTES % (MANUAL) 4 % (0-11.0); NEUTROPHILS % (MANUAL) 79 (42-76)
[2020-08-11] MEDS: ENSURE ENLIVE 237 ML LIQUID (VANILLA) PO SCH ×2 (08:00→13:00)
[2020-08-11 08:14] LABS: ABG BASE EXCESS 5.3 mmol/L; ABG OXYGEN SATURATION 90.9 % (92.0-98.5); ABG PCO2 50.2 mmHg (35.0-45.0); ABG PH 7.406 (7.350-7.450); ABG PO2 60.7 mmHg (75.0-100.0); AaDO2 311.9 mmHg; COHb 0.7 % (0.5-1.5); O2Hb 90.3 % (94.0-97.0); PEEP,BG 8 cm H2O; SITE, ABG Right Radial; VT, ABG 400 mL
[2020-08-11] MEDS: HYDROCORTISONE SOD SUCCINATE 100 MG/2 ML VIAL IV SCH ×2 (08:39→16:28)
[2020-08-11] MEDS: VANCOMYCIN 1 GM in IV D5W 250 ML IV SCH ×3 (08:44→22:20)
--- NOTE | 2020-08-11 10:31 | NUR ---
RN NOTE 0715: Received patient obtunded. With ETT to vent, no respiratory distress noted at this time. On Levo, Kevin and Vaso drips max dose. Off sedation, remained obtunded. Noted with weeping all over. ALEKSANDAR PICC and Right fem HD cath intact. Gould cath intact. 1000: Spoke with son Macario and Joanna daughter in law [phone], and updated re: patient condition. Family decided to place patient on comfort measures only. S/E by Dr. Cavazos with order of Dilaudid 1mg IVP q1 PRN. Made Dr. Miranda aware, with order to change code status to comfort measures only, terminal extubation 30min afrter giving Dilaudid 1 IVP and DC pressors. Addendum: 08/11/20 at 1035 by BRAYAN CHARLTON RN disregard this note, note for another patient. AG
[2020-08-11] MEDS: POTASSIUM CL. PREMIX PERIPHER. 50 ML IV SCH ×6 (10:49→16:22)
[2020-08-11] MEDS: JEVITY 1.2 CAL 1,000 ML BOTTLE GT PRN (15:25)
--- NOTE | 2020-08-11 22:27 | NUR ---
vanco level is 21 will hold vanco order and wait for vanco trough in the am.
[2020-08-12] VITALS (61 sets, daily range): BP systolic 86–146; BP diastolic 55–119
[2020-08-12] MEDS: PROPOFOL 100 ML IV PRN ×4 (03:19→20:19)
[2020-08-12 04:44] LABS: BASOPHILS # (AUTO) 0.1 /CMM (0.0-0.2); BASOPHILS % (AUTO) 0.5 % (0.0-2.0); EOSINOPHILS % (AUTO) 1.8 % (0.0-6.0); HEMATOCRIT 24 % (39-51); HEMOGLOBIN 7.8 g/dL (13.5-17.5); LYMPHOCYTES # (AUTO) 0.6 /CMM (0.8-4.8); LYMPHOCYTES % (AUTO) 5.9 % (20.0-44.0); MEAN CORPUSCULAR HGB CONC 33 g/dl (31.0-36.0); MEAN CORPUSCULAR VOLUME 103 fL (80-96); MONOCYTES # (AUTO) 0.2 /CMM (0.1-1.30); MONOCYTES % (AUTO) 1.7 % (2.0-12.0); NEUTROPHILS % (AUTO) 90.1 % (43.0-81.0); PLATELET COUNT (AUTO) 90 /CMM (150-450); RED BLOOD CELL COUNT(AUTO) 2.29 MIL/uL (4.5-6.0)
[2020-08-12 05:03] LABS: CALCIUM, SERUM 7.9 mg/dL (8.5-10.1); CREATININE 0.5 mg/dL (0.6-1.3); MAGNESIUM 2.2 mg/dL (1.8-2.4); POTASSIUM 3.1 mmol/L (3.5-5.1)
[2020-08-12 05:23] LABS: EOSINOPHILS % (MANUAL) 2 % (0-4); LYMPHOCYTES % (MANUAL) 6 % (16-48); MONOCYTES % (MANUAL) 2 % (0-11.0); NEUTROPHILS % (MANUAL) 90 (42-76)
[2020-08-12] MEDS: CEFEPIME 2 GM in IV D5W 100 ML IV SCH ×3 (05:33→22:09)
--- NOTE | 2020-08-12 06:34 | NUR ---
Patient remains in no acute distress in bed. patient did not have any significant change in condition during shift. Patient tolerated vent setting well. all needs met, all orders carried out. will endorse care to am RN for continuity of care.
[2020-08-12] MEDS: HYDROCORTISONE SOD SUCCINATE 100 MG/2 ML VIAL IV SCH (08:37)
[2020-08-12 09:02] LABS: ABG BASE EXCESS 5.7 mmol/L; ABG OXYGEN SATURATION 86.9 % (92.0-98.5); ABG PCO2 42.7 mmHg (35.0-45.0); ABG PH 7.465 (7.350-7.450); ABG PO2 52.4 mmHg (75.0-100.0); AaDO2 328.4 mmHg; COHb 0.7 % (0.5-1.5); MetHb 0.5 % (0.0-1.5); O2Hb 85.9 % (94.0-97.0); PEEP,BG 8 cm H2O; SITE, ABG Right Radial; VT, ABG 400 mL
[2020-08-12] MEDS: VANCOMYCIN 1 GM in IV D5W 250 ML IV SCH (09:20)
[2020-08-12] MEDS ORDERED: NEUTRA PHOS 1 POWD.PACKET NG ONE (11:00)
[2020-08-12] MEDS: POTASSIUM CHLORIDE 20 MEQ POWDER PACKET GT SCH ×2 (11:24→12:12)
--- NOTE | 2020-08-12 18:00 | NUR ---
RN NOTES DR REVELES NOTIFIED REGARDING CHEST X-RAY RESULTS .
[2020-08-13] VITALS (63 sets, daily range): BP systolic 77–142; BP diastolic 42–76
[2020-08-13] MEDS: PROPOFOL 100 ML IV PRN ×5 (01:31→19:50)
[2020-08-13 04:08] LABS: BASOPHILS % (AUTO) 0.3 % (0.0-2.0); EOSINOPHILS % (AUTO) 2.9 % (0.0-6.0); HEMATOCRIT 23 % (39-51); HEMOGLOBIN 7.2 g/dL (13.5-17.5); LYMPHOCYTES # (AUTO) 0.4 /CMM (0.8-4.8); LYMPHOCYTES % (AUTO) 3.7 % (20.0-44.0); MEAN CORPUSCULAR HGB CONC 32 g/dl (31.0-36.0); MEAN CORPUSCULAR VOLUME 104 fL (80-96); MONOCYTES # (AUTO) 0.2 /CMM (0.1-1.30); MONOCYTES % (AUTO) 1.8 % (2.0-12.0); NEUTROPHILS # (AUTO) 10.5 /CMM (1.8-8.9); NEUTROPHILS % (AUTO) 91.3 % (43.0-81.0); PLATELET COUNT (AUTO) 101 /CMM (150-450); RED BLOOD CELL COUNT(AUTO) 2.18 MIL/uL (4.5-6.0); WHITE BLOOD COUNT (AUTO) 11.6 K/uL (4.3-11.0)
[2020-08-13 04:18] LABS: CALCIUM, SERUM 7.9 mg/dL (8.5-10.1); CREATININE 0.5 mg/dL (0.6-1.3); MAGNESIUM 2.2 mg/dL (1.8-2.4); PHOSPHORUS 2.1 mg/dL (2.5-4.9); POTASSIUM 3.2 mmol/L (3.5-5.1)
[2020-08-13 04:44] LABS: NEUTROPHILS % (MANUAL) 91 (42-76)
[2020-08-13 04:45] LABS: BAND % (MANUAL) 4 % (0.0-5.0); EOSINOPHILS % (MANUAL) 1 % (0-4); LYMPHOCYTES % (MANUAL) 3 % (16-48); MONOCYTES % (MANUAL) 1 % (0-11.0)
[2020-08-13] MEDS: CEFEPIME 2 GM in IV D5W 100 ML IV SCH ×3 (05:21→20:08)
[2020-08-13] MEDS ORDERED: HYDROCORTISONE SOD SUCCINATE 100 MG/2 ML VIAL IV SCH (09:00)
[2020-08-13] MEDS: POTASSIUM CHLORIDE 20 MEQ POWDER PACKET GT SCH ×2 (10:23→11:17)
--- NOTE | 2020-08-13 10:32 | NUR ---
FMLA documentation: SW picked up completed FMLA documentation from ICU. FMLA documentation located in patient's physical medical chart. Patient's physician has completed this documentation. SW to fax it to daughter Phil Gaxiola [phone] (fax) [phone] (phone). SW remains available for all needs regarding this patient.
--- NOTE | 2020-08-13 10:35 | NUR ---
Family contact: SW spoke with Phil Gaxiola (daughter) [phone] regarding FMLA documentation. SW informed Phil, FMLA documentation has been filled and completed by patient physician and this SW faxed these documents to [phone] . Patient's daughter Phil to coordinate with this SW should any questions arise regarding FMLA paperwork. SW remains available for all needs regarding this patient.
[2020-08-13] MEDS: JEVITY 1.2 CAL 1,000 ML BOTTLE GT PRN (16:39)
[2020-08-13] MEDS ORDERED: NEUTRA PHOS 1 POWD.PACKET GT ONE (17:30)
--- NOTE | 2020-08-13 18:40 | NUR ---
RN NOTES PT REMAINS INTUBATED AND SEDATED, TOLERATING VENT SETTING WELL, NO SIGNIFICANT CHANGES NOTED ON THIS SHIFT, WILL ENDORSE TO LIVESTOCK FEEDER NURSE FOR CONTINUITY OF CARE .
[2020-08-14] VITALS (42 sets, daily range): BP systolic 99–155; BP diastolic 45–81
[2020-08-14] MEDS: PROPOFOL 100 ML IV PRN ×4 (00:55→19:15)
[2020-08-14 04:35] LABS: BASOPHILS % (AUTO) 0.1 % (0.0-2.0); EOSINOPHILS % (AUTO) 1.8 % (0.0-6.0); HEMATOCRIT 22 % (39-51); LYMPHOCYTES # (AUTO) 0.5 /CMM (0.8-4.8); LYMPHOCYTES % (AUTO) 3.9 % (20.0-44.0); MEAN CORPUSCULAR HGB CONC 32 g/dl (31.0-36.0); MEAN CORPUSCULAR VOLUME 105 fL (80-96); MONOCYTES # (AUTO) 0.2 /CMM (0.1-1.30); MONOCYTES % (AUTO) 1.6 % (2.0-12.0); NEUTROPHILS # (AUTO) 11.8 /CMM (1.8-8.9); NEUTROPHILS % (AUTO) 92.6 % (43.0-81.0); PLATELET COUNT (AUTO) 115 /CMM (150-450); RED BLOOD CELL COUNT(AUTO) 2.11 MIL/uL (4.5-6.0); WHITE BLOOD COUNT (AUTO) 12.7 K/uL (4.3-11.0)
[2020-08-14 04:42] LABS: CALCIUM, SERUM 7.9 mg/dL (8.5-10.1); CREATININE 0.4 mg/dL (0.6-1.3); MAGNESIUM 2.6 mg/dL (1.8-2.4); PHOSPHORUS 2.3 mg/dL (2.5-4.9); POTASSIUM 3.7 mmol/L (3.5-5.1)
[2020-08-14] MEDS: CEFEPIME 2 GM in IV D5W 100 ML IV SCH ×3 (05:57→21:00)
--- NOTE | 2020-08-14 09:09 | NUR ---
PT RECEIVED IN BED ON PRESCRIBED VENT SETTINGS ETT 7.5/25, AC 20, TV 400, FIO2 70%, PEEP 8. O2 SAT 100%. PT IS SEDATED ON 40 MCG DIPROVAN. PT ON MONITOR SHOWING SR/ST. PT COFFMAN DRAINING ISACC URINE. PT ON BILATERAL SOFT WRIST RESTRAINTS ORDERED. PT HAS OGT RUNNING JEVITY AT 45 ML/HR. RESIDUAL LESS THAN 30 ML. PT ALEKSANDAR PICC INTACT AND FLUSHED WELL. PT WITH TEMP 100.3, COOLING BLANKET APPLIED. ALL SAFETY MEASURES IN PLACE, WILL CONTINUE TO MONITOR CLOSELY
[2020-08-14] MEDS: ACETAMINOPHEN 325 MG TABLET PO PRN ×2 (09:48→21:01)
[2020-08-14] MEDS ORDERED: K PHOS NEUTRAL 250 MG TABLET PO ONE (16:00)
[2020-08-14] MEDS: JEVITY 1.2 CAL 1,000 ML BOTTLE GT PRN (16:56)
[2020-08-14] MEDS: ENOXAPARIN SODIUM 40 MG/0.4 ML DISP.SYRIN SQ SCH (17:07)
--- NOTE | 2020-08-14 19:30 | NUR ---
PT REMAINS IN BED ON VENT, NOT READY FOR WEANING PER MD PELEG. NO CHANGE OF PATIENT CONDITION. PT REMAINS FEBRILE DESPITE COOLING BLANKET, COOLING MEASURES, AND ACETAMINOPHEN. PT HAD 275 OUTPUT THIS SHIFT FROM COFFMAN, NO BM. IV ACCESS REMAINS IN PLACE, DIPROVAN RUNNING AT 40 MCG. ALL SAFETY MEASURES IN PLACE. REPORT GIVEN TO CAL FOR PAWAN
--- NOTE | 2020-08-14 22:13 | NUR ---
MISSILE CONTROL PILOT NOTES PATIENT WITH ALEKSANDAR DOUBLE LUMEN PICC. [address] HI NOTIFIED, WITH NEW ORDER FOR CATHFLO ACTIVASE. WILL CARRY OUT NEW ORDERS Addendum: 08/15/20 at 0121 by RICARDO KEANE RN S/P CATHFLO-ACTIVASE TO RED PORT OF ALEKSANDAR DOUBLE LUMEN PICC. EFFECTIVE, PATENCY RESTORED. WILL CONTINUE CLOSE MONITORING
[2020-08-14] MEDS ORDERED: ALTEPLASE CATHFLO 2 MG/VIAL XX ONE (22:30)
[2020-08-14] MEDS ORDERED: ALTEPLASE CATHFLO 2 MG/VIAL ONE (22:40)
[2020-08-14] MEDS ORDERED: WATER FOR INJECTION,STERILE 10 ML ONE (23:01)
[2020-08-15] VITALS (46 sets, daily range): BP systolic 69–163; BP diastolic 45–97
[2020-08-15] MEDS: CEFEPIME 2 GM in IV D5W 100 ML IV SCH ×3 (05:47→20:30)
[2020-08-15] MEDS: PROPOFOL 100 ML IV PRN ×4 (06:11→21:58)
[2020-08-15 06:39] LABS: BASOPHILS # (AUTO) 0.1 /CMM (0.0-0.2); BASOPHILS % (AUTO) 0.4 % (0.0-2.0); EOSINOPHILS % (AUTO) 2.5 % (0.0-6.0); HEMATOCRIT 21 % (39-51); LYMPHOCYTES # (AUTO) 0.6 /CMM (0.8-4.8); LYMPHOCYTES % (AUTO) 4.6 % (20.0-44.0); MEAN CORPUSCULAR HGB CONC 31 g/dl (31.0-36.0); MEAN CORPUSCULAR VOLUME 104 fL (80-96); MONOCYTES # (AUTO) 0.2 /CMM (0.1-1.30); MONOCYTES % (AUTO) 1.9 % (2.0-12.0); NEUTROPHILS # (AUTO) 11.9 /CMM (1.8-8.9); NEUTROPHILS % (AUTO) 90.6 % (43.0-81.0); PLATELET COUNT (AUTO) 123 /CMM (150-450); RED BLOOD CELL COUNT(AUTO) 2.02 MIL/uL (4.5-6.0); WHITE BLOOD COUNT (AUTO) 13.2 K/uL (4.3-11.0)
[2020-08-15 06:42] LABS: HEMOGLOBIN 6.6 g/dL (13.5-17.5)
--- NOTE | 2020-08-15 07:57 | NUR ---
PT RECEIVED IN BED PN Addendum: 08/15/20 at 0759 by PRACHI PRICE RN PT RECEIVED IN BED ON PRESCRIBED VENT/TRACH SETTINGS, ETT 7.5/25, TV 400, FIO2 70%, PEEP 8.O2 SAT 100%. PT ON MONITOR SHOWING ST, PT SEDATED ON 40 MCG OF DIPROVAN, WILL TITRATE DOWN TOLERATED. PT REMAINS FEBRILE 99.4 DESPITE COOLING MEASURES AND ACETAMINOPHEN PER PREVIOUS RN. PT ALEKSANDAR PICC INTACT AND FLUSHED WELL. ALL SAFETY MEASURES IN PLACE, WILL CONTINUE TO MONITOR
[2020-08-15] MEDS: ENOXAPARIN SODIUM 40 MG/0.4 ML DISP.SYRIN SQ SCH (09:00)
--- NOTE | 2020-08-15 09:45 | NUR ---
0900 LOVENOX NON-ADMIN PER CABINETMAKER SUPERVISOR CONSTANCE. H/H 6.6, PLT 123.
[2020-08-15 11:57] LABS: CALCIUM, SERUM 7.7 mg/dL (8.5-10.1); CREATININE 0.5 mg/dL (0.6-1.3); POTASSIUM 3.5 mmol/L (3.5-5.1)
[2020-08-15 12:23] LABS: PHOSPHORUS 2.2 mg/dL (2.5-4.9)
[2020-08-15 12:24] LABS: MAGNESIUM 2.4 mg/dL (1.8-2.4)
[2020-08-15] MEDS ORDERED: NEUTRA PHOS 1 POWD.PACKET NG ONE (13:00)
[2020-08-15 13:21] LABS: BAND % (MANUAL) 6 % (0.0-5.0); EOSINOPHILS % (MANUAL) 3 % (0-4); LYMPHOCYTES % (MANUAL) 4 % (16-48); MONOCYTES % (MANUAL) 3 % (0-11.0); MYELOCYTES % 2 % (0-0); NEUTROPHILS % (MANUAL) 82 (42-76)
[2020-08-15] MEDS: ACETAMINOPHEN 325 MG TABLET PO PRN (13:44)
[2020-08-15] MEDS ORDERED: EPOETIN ALFA (20,000 UNIT) 20,000 UNIT/ML VIAL SQ SCH (16:00)
[2020-08-15] MEDS: Folic acid 1 MG in IV D5W 50 ML IV SCH (17:14)
[2020-08-15] MEDS: JEVITY 1.2 CAL 1,000 ML BOTTLE GT PRN (18:11)
--- NOTE | 2020-08-15 19:10 | NUR ---
RECEIVED PT ON BED SEDATED ON ETT/VENT SETTING PER MD, SPO2 98% NO SIGN OF DISTRESS, NO PAIN NOTED TELE MONITOR READS SINUS TACHY 110'S MD IS AWARE, HAVE GTUBE ON PLACE, PLACEMENT WAS CHECKED AND VERIFIED WITH JEVITY @ 45ML/ HOUR, 5ML RESIDUAL NOTED, HAVE COFFMAN CATHETER WITH YELLOW URINE DRAINING VIA GRAVITY, PT IS JEHOVAH WITNESSES AND PER SPIRITISM THEY DONT ACCEPT BLOOD TRANSFUSION, HAVE BILATERAL SOFT RESTRAINT CIRCULATION WAS CHECKED BED ON LOWEST POSITION AND LOCKED SIDE RAILS UP X2 WILL CONT TO MONITOR
[2020-08-15 19:34] LABS: OCCULT BLOOD STOOL POSITIVE (NEGATIVE)
[2020-08-16] VITALS (67 sets, daily range): BP systolic 65–151; BP diastolic 33–103
--- NOTE | 2020-08-16 02:40 | NUR ---
PT ON BED STILL SEDATED WITH PROPOFOL @ 50MCG/KG/MIN STILL ON ETT/VENT SETTING PER MD FIO2 70% SPO2 98% NO SIGN OF DISTRESS, NO PAIN NOTED WILL CONT TO MONITOR
[2020-08-16] MEDS: PROPOFOL 100 ML IV PRN ×7 (03:00→22:59)
[2020-08-16] MEDS: ACETAMINOPHEN 325 MG TABLET PO PRN ×3 (03:01→23:17)
[2020-08-16] MEDS: CEFEPIME 2 GM in IV D5W 100 ML IV SCH ×3 (04:13→22:19)
[2020-08-16 04:59] LABS: CALCIUM, SERUM 7.8 mg/dL (8.5-10.1); CREATININE 0.5 mg/dL (0.6-1.3); POTASSIUM 3.5 mmol/L (3.5-5.1)
[2020-08-16 05:46] LABS: TOTAL IRON BINDING CAPACITY 134 ug/dl (250-450)
[2020-08-16 05:59] LABS: IRON, SERUM 46 ug/dl (50-175)
[2020-08-16 06:26] LABS: FERRITIN 4757 ng/mL (8-388)
--- NOTE | 2020-08-16 06:53 | NUR ---
SEEN BY STEPHANIE NOLASCO NP
--- NOTE | 2020-08-16 07:17 | NUR ---
PT ON BED SEDATED WITH PROPOFOL @ 60MCG/KG/MIN STILL ON ETT/VENT SETTING PER MD FIO2 60% SPO2 92% NO SIGNIFICANT CHANGES ON CONDITION NOTED, ALL NEEDS ATTENDED BED ON LOWEST POSITION AND LOCKED SIDE RAILS UP X2 COOLING BLANKET STILL ON PLACE TEMP 100.1 TYLENOL WAS GIVEN @ 0300 WILL ENDORSED TO AM SHIFT NURSE
[2020-08-16 07:24] LABS: BASOPHILS % (AUTO) 0.3 % (0.0-2.0); EOSINOPHILS % (AUTO) 2.1 % (0.0-6.0); LYMPHOCYTES # (AUTO) 0.5 /CMM (0.8-4.8); LYMPHOCYTES % (AUTO) 3.9 % (20.0-44.0); MEAN CORPUSCULAR HGB CONC 31 g/dl (31.0-36.0); MEAN CORPUSCULAR VOLUME 105 fL (80-96); MONOCYTES # (AUTO) 0.3 /CMM (0.1-1.30); MONOCYTES % (AUTO) 1.9 % (2.0-12.0); NEUTROPHILS # (AUTO) 12.6 /CMM (1.8-8.9); NEUTROPHILS % (AUTO) 91.8 % (43.0-81.0); PLATELET COUNT (AUTO) 140 /CMM (150-450); WHITE BLOOD COUNT (AUTO) 13.7 K/uL (4.3-11.0)
[2020-08-16 08:11] LABS: ABG BASE EXCESS 7.9 mmol/L; ABG OXYGEN SATURATION 84.6 % (92.0-98.5); ABG PCO2 55.6 mmHg (35.0-45.0); ABG PH 7.399 (7.350-7.450); ABG PO2 47.8 mmHg (75.0-100.0); AaDO2 318.8 mmHg; COHb 2.6 % (0.5-1.5); MetHb 0.3 % (0.0-1.5); O2Hb 82.1 % (94.0-97.0); PEEP,BG 8 cm H2O; SITE, ABG Left Radial; VT, ABG 400 mL
[2020-08-16 08:23] LABS: RED BLOOD CELL COUNT(AUTO) 1.76 MIL/uL (4.5-6.0)
[2020-08-16 08:25] LABS: HEMOGLOBIN 5.7 g/dL (13.5-17.5)
[2020-08-16 08:26] LABS: HEMATOCRIT 19 % (39-51)
--- NOTE | 2020-08-16 08:29 | NUR ---
PT CRITICAL VALUE HGB 5.7. HGB HAS BEEN TRENDING DOWN, EPOGEN AND FOLIC ACID ALREADY INITIATED. PT IS A DEVOUT JAINISM AND REFUSES BLOOD TRANSFUSIONS. PT FAMILY PREVIOUSLY NOTIFIED, AND REAFFIRMS PT WISHES. JESÚS ORELLANA.
[2020-08-16 08:39] LABS: ABG BASE EXCESS 8.7 mmol/L; ABG OXYGEN SATURATION 74.3 % (92.0-98.5); ABG PCO2 64.3 mmHg (35.0-45.0); ABG PH 7.358 (7.350-7.450); ABG PO2 40.9 mmHg (75.0-100.0); AaDO2 316.2 mmHg; COHb 2.2 % (0.5-1.5); MetHb 0.3 % (0.0-1.5); O2Hb 72.4 % (94.0-97.0); PEEP,BG 8 cm H2O; SITE, ABG Right Radial; VENT MODE, BG AC 60%; VT, ABG 400 mL
[2020-08-16] MEDS ORDERED: EPOETIN ALFA (20,000 UNIT) 20,000 UNIT/ML VIAL SQ ONE (11:00)
[2020-08-16] MEDS: PHENYLEPHRINE 100 MG in IV NS 0.9% 240 ML IV PRN ×2 (13:37→23:44)
[2020-08-16] MEDS: LORAZEPAM INJ 2 MG/ML VIAL IV PRN (16:27)
[2020-08-16] MEDS: JEVITY 1.2 CAL 1,000 ML BOTTLE GT PRN (16:31)
[2020-08-16 17:48] LABS: ABG BASE EXCESS 7.8 mmol/L; ABG OXYGEN SATURATION 95.5 % (92.0-98.5); ABG PH 7.303 (7.350-7.450); ABG PO2 86.5 mmHg (75.0-100.0); AaDO2 370.7 mmHg; COHb 1.2 % (0.5-1.5); MetHb 0.4 % (0.0-1.5); PEEP,BG 12 cm H2O; SITE, ABG Right Radial; VT, ABG 400 mL
--- NOTE | 2020-08-16 18:30 | NUR ---
FOLIC ACID NOT GIVEN YET, WILL ATTEMPT NEW IV ACCESS
--- NOTE | 2020-08-16 19:00 | NUR ---
PT REMAINS IN BED ON PRESCRIBED VENT SETTINGS. PT TODAY REMAINS FEBRILE DESPITE COOLING BLANKET, ICE PACKS, AND TYLENOL, AND COOL WATER OGT FLUSHES. PT IV ACCESS REMAINS INTACT NO SIGNS OF INFECTION OR INFILTRATION. PT RUNNING DIPROVAN AT 100 MCG AND SADI AT 2 MCG. COFFMAN CATH REMAINS INTACT, 1X WATERY BM THIS SHIFT. ALL SAFETY MEASURES IN PLACE. REPORT GIVEN TO KASSI FOR PAWAN
--- NOTE | 2020-08-16 19:15 | NUR ---
RN NOTE RECEIVED PT IN BED SEDATED IN SEMI BARTON'S POSITION. INTUBATED AND TOLERATING VENT SETTINGS WELL. RESPIRATIONS EVEN AND UNLABORED, NO SIGNS OF PAIN OR DISCOMFORT, VITAL SIGNS STABLE VIA BEDSIDE MONITOR, SR ON THE PROJECTOR BOOTH OPERATOR, ENDORSED ABOUT FEBRILE TEMPERATURE, COOLING BLANKET IN PLACE, OGT PATENT AND IN PLACE VERIFIED BY AUSCULTATION AND ASPIRATION OF GASTRIC CONTENTS, PICC LINE PATENT AND FLUSHES WELL WITHOUT COMPLICATIONS NOTED AT SITE, ON PROPOFOL 100MCG AND SADI 2 MCG FROM AM SHIFT. COFFMAN CATHETER PATENT AND IN PLACE DRAINING CLEAR YELLOW URINE VIA GRAVITY, RESTRAINTS IN PLACE ORDERED FOR SAFETY, SAFETY MEASURES IN PLACE PER PROTOCOL, BED ALARM ON, BED LOCKED AND IN LOW POSITION, SIDE RAILS UP X 2, WILL MONITOR PATIENT.
--- NOTE | 2020-08-16 19:46 | NUR ---
RN NOTE SPOKE TO PHARMACY WHO STATES THAT FOLIC ACID IV AND SADI IV ARE COMPATIBLE.
[2020-08-16] MEDS: Folic acid 1 MG in IV D5W 50 ML IV SCH (20:01)
[2020-08-16] MEDS ORDERED: NOREPINEPHRINE 8MG/250ML RTU 250 ML IV ONE (21:09)
[2020-08-16] MEDS: NOREPINEPHRINE 8 MG in IV NS 0.9% 242 ML IV PRN (21:25)
--- NOTE | 2020-08-16 22:18 | NUR ---
RN NOTE NATURAL GAS BASIS TRADER MARIZOL INSERTED 22G EXTERNAL RIGHT JUGULAR IV.
[2020-08-17] VITALS (96 sets, daily range): BP systolic 76–149; BP diastolic 42–87
[2020-08-17] MEDS: PROPOFOL 100 ML IV PRN ×6 (02:36→21:52)
--- NOTE | 2020-08-17 04:00 | NUR ---
RN NOTE COMPLETE BED BATH AND LINEN CHANGE COMPLETED. PT TOLERATED WELL. OGT PLACEMENT VERIFIED VIA ASCULTATION AND ASPIRATION OF GASTRIC CONTENTS BEFORE RESUMPTION OF TUBE FEEDING AT 45CC/HOUR.
[2020-08-17] MEDS: CEFEPIME 2 GM in IV D5W 100 ML IV SCH ×3 (04:25→20:08)
--- NOTE | 2020-08-17 06:49 | NUR ---
RN NOTE AXILLARY TEMP RECHECKED WITH VALUE OF 100.4. TYLENOL 625MG VIA OGT. COOLING MEASURES ALSO APPLIED,
[2020-08-17] MEDS: ACETAMINOPHEN 325 MG TABLET PO PRN ×3 (06:56→20:09)
--- NOTE | 2020-08-17 07:16 | NUR ---
RN NOTE NO ACUTE CHANGES OBSERVED OVERNIGHT. PT REMAINS SEDATED WHILE IN SEMI BARTON'S POSITION. INTUBATED AND TOLERATING VENT SETTINGS WELL. RESPIRATIONS EVEN AND UNLABORED, OGT PLACEMENT VERIFIED VIA AUSCULTATION AND ASPIRATION OF GASTRIC CONTENTS, TUBE FEEDING RUNNING AT 45ML/HOUR ORDERED, NO RESIDUAL NOTED, SR/ST VIA ORNAMENTAL IRONWORKER. IV LINES PATENT AND WITHOUT COMPLICATIONS NOTED AT SITE, WITH SADI @ 2MCG, PROPOFOL @ 60MCG, AND LEVO @ 0.08MCG. COFFMAN CATHETER PATENT AND IN PLACE DRAINING CLEAR YELLOW URINE, SAFETY MEASURES IN PLACE PER PROTOCOL, ENDORSED TO MORNING RN FOR PAWAN.
[2020-08-17 08:42] LABS: ABG BASE EXCESS 7.2 mmol/L; ABG OXYGEN SATURATION 97.1 % (92.0-98.5); ABG PCO2 78.4 mmHg (35.0-45.0); ABG PO2 101.1 mmHg (75.0-100.0); AaDO2 350.4 mmHg; COHb 1.4 % (0.5-1.5); MetHb 0.5 % (0.0-1.5); O2Hb 95.3 % (94.0-97.0); PEEP,BG 10 cm H2O; SITE, ABG Right Radial; VENT MODE, BG AC 75%; VT, ABG 375 mL
[2020-08-17] MEDS: PANTOPRAZOLE 40 MG VIAL IV SCH ×2 (09:02→20:08)
--- NOTE | 2020-08-17 09:47 | NUR ---
WOUND CARE FOLLOW UP: REVIEWED CHART AND NURSING DOCUMENTATION WHICH INDICATES REJI SCORE OF 11. FIRST STEP LOW AIRLOSS MATTRESS ORDERED. RECOMMENDATIONS MADE FOR SKIN PROTECTION. DISCUSSED WITH NURSING STAFF. MD IN AGREEMENT WITH PLAN OF CARE.
[2020-08-17 11:43] LABS: BASOPHILS % (AUTO) 0.2 % (0.0-2.0); HEMATOCRIT 23 % (39-51); LYMPHOCYTES # (AUTO) 1.2 /CMM (0.8-4.8); LYMPHOCYTES % (AUTO) 6.2 % (20.0-44.0); MEAN CORPUSCULAR HGB CONC 30 g/dl (31.0-36.0); MEAN CORPUSCULAR VOLUME 106 fL (80-96); MONOCYTES # (AUTO) 0.4 /CMM (0.1-1.30); MONOCYTES % (AUTO) 2.3 % (2.0-12.0); NEUTROPHILS # (AUTO) 17.1 /CMM (1.8-8.9); NEUTROPHILS % (AUTO) 89.3 % (43.0-81.0); PLATELET COUNT (AUTO) 198 /CMM (150-450); RED BLOOD CELL COUNT(AUTO) 2.13 MIL/uL (4.5-6.0); WHITE BLOOD COUNT (AUTO) 19.1 K/uL (4.3-11.0)
[2020-08-17 12:00] LABS: HEMOGLOBIN 6.8 g/dL (13.5-17.5)
[2020-08-17] MEDS: PHENYLEPHRINE 100 MG in IV NS 0.9% 240 ML IV PRN (13:43)
[2020-08-17] MEDS: Folic acid 1 MG in IV D5W 50 ML IV SCH (17:08)
--- NOTE | 2020-08-17 18:48 | NUR ---
RN NOTE Received patient in am, sedated. With ETT to vent, tolerated settings at this time, 75% +10. On sedation of Diprivan @ 60mcg. OGT intact, TF tolerated, kept HOB elevated. SR 90's. Gould cath intact, noted with fabby colored urine with sediments drained to BSD. On isolation prec for Covid maintained and observed. On INVASIVE PHYSICIAN restraints for safety. ALEKSANDAR PICC intact, REJ PIV intact. On Diprivan 60, Levo 0.08, Kevin 2, please see IV spreadsheet for titration. OGT intact, TF tolerated, kept HOB elevated. Noted with dark brown soft stool, no active bleeding noted, cleaned patient and rendered bed bath. Spoke with daughter via phone and given update re: patient's condition. 1830: Remained on Diprivan @ 70mcg, increased for noted with mild agitation, please see IV spreadsheet. On Kevin 2.5mcg. Kept clean, warm and dry. INVASIVE PHYSICIAN restraints on.
[2020-08-17] MEDS: NOREPINEPHRINE 8 MG in IV NS 0.9% 242 ML IV PRN (22:38)
[2020-08-18] VITALS (96 sets, daily range): BP systolic 59–202; BP diastolic 38–169
--- NOTE | 2020-08-18 00:25 | NUR ---
RT NOTE FIO2 INCREASED TO 80% D/T SPO2 86-88%. RN MONAE AWARE OF CHANGE. WILL CONTINUE TO MONITOR T.O SHIFT.
[2020-08-18] MEDS: JEVITY 1.2 CAL 1,000 ML BOTTLE GT PRN ×2 (00:37→16:37)
[2020-08-18] MEDS: PHENYLEPHRINE 100 MG in IV NS 0.9% 240 ML IV PRN ×3 (00:37→18:35)
[2020-08-18] MEDS: PROPOFOL 100 ML IV PRN ×6 (01:29→22:01)
[2020-08-18 05:23] LABS: BASOPHILS # (AUTO) 0.1 /CMM (0.0-0.2); BASOPHILS % (AUTO) 0.3 % (0.0-2.0); EOSINOPHILS % (AUTO) 1.5 % (0.0-6.0); HEMATOCRIT 21 % (39-51); LYMPHOCYTES # (AUTO) 1.4 /CMM (0.8-4.8); LYMPHOCYTES % (AUTO) 5.9 % (20.0-44.0); MEAN CORPUSCULAR HGB CONC 29 g/dl (31.0-36.0); MEAN CORPUSCULAR VOLUME 107 fL (80-96); MONOCYTES # (AUTO) 0.5 /CMM (0.1-1.30); MONOCYTES % (AUTO) 2.1 % (2.0-12.0); NEUTROPHILS # (AUTO) 20.9 /CMM (1.8-8.9); NEUTROPHILS % (AUTO) 90.2 % (43.0-81.0); PLATELET COUNT (AUTO) 224 /CMM (150-450); WHITE BLOOD COUNT (AUTO) 23.1 K/uL (4.3-11.0)
[2020-08-18] MEDS: CEFEPIME 2 GM in IV D5W 100 ML IV SCH ×2 (05:36→12:58)
[2020-08-18 05:57] LABS: CALCIUM, SERUM 7.9 mg/dL (8.5-10.1); CREATININE 0.8 mg/dL (0.6-1.3); MAGNESIUM 2.3 mg/dL (1.8-2.4); PHOSPHORUS 3.5 mg/dL (2.5-4.9); POTASSIUM 4.4 mmol/L (3.5-5.1)
--- NOTE | 2020-08-18 06:30 | NUR ---
DIGITAL WATCH ASSEMBLER: STILL HAVING FEVER MOST OF THE SHIFT. TYLENOL GIVEN WT MINIMAL EFFECT. COOLING MEASURES RENDERED AT ALL TIMES. LEVOPHED RESTARTED FOR LOW BP, TITRATED AND NOW AT 0.04MCG/KG/MIN. STILL ON DIPRIVAN AT 70MCG/KG/MIN, NEOSYNEPHRINE AT 3MCG/KG/MIN. ALL NEEDS MET. SAFETY PRECAUTION NOTED AT ALL TIMES.
[2020-08-18 07:36] LABS: RED BLOOD CELL COUNT(AUTO) 1.94 MIL/uL (4.5-6.0)
[2020-08-18 07:39] LABS: HEMOGLOBIN 6.1 g/dL (13.5-17.5)
[2020-08-18] MEDS: PANTOPRAZOLE 40 MG VIAL IV SCH ×2 (09:20→20:39)
--- NOTE | 2020-08-18 11:47 | NUR ---
fio2 changed to 60% fio2 due to 80% spo2. rn notified on changes. Addendum: 08/18/20 at 1148 by BORIS DIGGS RT Amended: Links added.
[2020-08-18] MEDS: FOLIC ACID 1 MG TABLET GT SCH (13:33)
[2020-08-18 13:49] LABS: BAND % (MANUAL) 8 % (0.0-5.0); EOSINOPHILS % (MANUAL) 1 % (0-4); LYMPHOCYTES % (MANUAL) 3 % (16-48); MONOCYTES % (MANUAL) 6 % (0-11.0); MYELOCYTES % 1 % (0-0); NEUTROPHILS % (MANUAL) 81 (42-76)
[2020-08-18] MEDS: LORAZEPAM INJ 2 MG/ML VIAL IV PRN (14:33)
[2020-08-18 14:38] LABS: ABG BASE EXCESS 2.5 mmol/L; ABG OXYGEN SATURATION 87.4 % (92.0-98.5); ABG PCO2 66.2 mmHg (35.0-45.0); ABG PH 7.272 (7.350-7.450); ABG PO2 55.9 mmHg (75.0-100.0); AaDO2 299.1 mmHg; COHb 1.7 % (0.5-1.5); MetHb 0.2 % (0.0-1.5); O2Hb 85.7 % (94.0-97.0); SITE, ABG Right Radial
--- NOTE | 2020-08-18 14:47 | NUR ---
vent changes below per dr. maya: VT 400 ml fio2 65% rn notified on changes made Addendum: 08/18/20 at 1448 by BORIS DIGGS RT Amended: Links added.
[2020-08-18] MEDS: MEROPENEM 1 G in IV NS 0.9% 100 ML IV SCH ×2 (16:11→20:39)
[2020-08-18] MEDS: VANCOMYCIN 1 GM in IV D5W 250ml IV SCH (16:23)
[2020-08-18] MEDS ORDERED: FENTANYL CITRATE IV 1,250 MCG in IV NS 0.9% 225 ML IV PRN (17:00)
[2020-08-18] MEDS ORDERED: FENTANYL CITRAT IV 2,500 MCG in IV NS 0.9% 250 ML IV PRN (18:30)
--- NOTE | 2020-08-18 19:10 | NUR ---
RN NOTE Remained on vent, with settings as ff: AC 22, 400, 65%, +10. Increased Diprivan from 70 in am, now on 100mcg, please see IV spreadsheet, per Dr. Sam, go all the way to 100mcg. And he ordered Fentanyl drip if needed, Ativan PRN given for increased WOB, became calm after. Spoke with daughter, update given. Gould cath intact, noted with fabby colored urine drained to BSD. Covid isolation prec maintained and observed. Kept clean, warm and dry. On Kevin 3, Levo 0.06, Dip 100. VSS at this time. EKG result, made Hugo X RAY EQUIPMENT TESTER aware, Trop level 0.044, Hugo X RAY EQUIPMENT TESTER aware.
--- NOTE | 2020-08-18 19:15 | NUR ---
RECEIVED PT ON BED SEDATED ON ETT/VENT SETTING PER MD, SPO2 91% NO SIGN OF DISTRESS, NO PAIN NOTED TELE MONITOR READS SINUS RHYTHM 90'S, HAVE GTUBE ON PLACE, PLACEMENT WAS CHECKED AND VERIFIED WITH JEVITY @ 45ML/ HOUR, 130ML RESIDUAL NOTED, FEEDING WAS HOLD, HAVE ALEKSANDAR MIDLINE WITH ONGOING SADI @ 3MCG/KG/MIN LEVO @ 0.06 MCG/KG/MIN DIPRIVAN @ 100MCG/KG/MIN INFUSING WELL AND R EXT JUGULAR IV @22 PATENT AND FLUSHED, HAVE COFFMAN CATHETER WITH YELLOW URINE DRAINING VIA GRAVITY, PT IS JEHOVAH WITNESSES AND PER AMISH THEY DONT ACCEPT BLOOD TRANSFUSION, HAVE BILATERAL SOFT RESTRAINT CIRCULATION WAS CHECKED BED ON LOWEST POSITION AND LOCKED SIDE RAILS UP X2 WILL CONT TO MONITOR
--- NOTE | 2020-08-18 21:30 | NUR ---
FENTANYL WAS STARTED RATE PER MD TITRATE PER PROTOCOL DUE TO PT TACHYPNEA WITH RR 44,WILL CONT TO MONITOR THE PT
[2020-08-18] MEDS: NOREPINEPHRINE 8 MG in IV NS 0.9% 242 ML IV PRN (22:02)
[2020-08-19] VITALS (97 sets, daily range): BP systolic 63–120; BP diastolic 38–76
[2020-08-19] MEDS: PROPOFOL 100 ML IV PRN ×9 (00:48→22:47)
--- NOTE | 2020-08-19 01:53 | NUR ---
PT ON BED SEDATED STILL ON ETT/VENT SPO2 96% NO SOB OR ACUTE DISTRESS NOTED, RR 28 HR 88 WILL CONT TO MONITOR THE PT
[2020-08-19] MEDS: VANCOMYCIN 1 GM in IV D5W 250ml IV SCH ×2 (02:23→15:43)
[2020-08-19] MEDS: PHENYLEPHRINE 100 MG in IV NS 0.9% 240 ML IV PRN ×3 (03:05→20:32)
[2020-08-19] MEDS: MEROPENEM 1 G in IV NS 0.9% 100 ML IV SCH ×3 (04:47→20:36)
[2020-08-19 06:33] LABS: BASOPHILS % (AUTO) 0.2 % (0.0-2.0); CALCIUM, SERUM 7.9 mg/dL (8.5-10.1); CREATININE 0.9 mg/dL (0.6-1.3); EOSINOPHILS % (AUTO) 2.9 % (0.0-6.0); LYMPHOCYTES % (AUTO) 4.8 % (20.0-44.0); MAGNESIUM 2.5 mg/dL (1.8-2.4); MEAN CORPUSCULAR HGB CONC 30 g/dl (31.0-36.0); MEAN CORPUSCULAR VOLUME 108 fL (80-96); MONOCYTES # (AUTO) 0.4 /CMM (0.1-1.30); MONOCYTES % (AUTO) 1.9 % (2.0-12.0); NEUTROPHILS # (AUTO) 18.3 /CMM (1.8-8.9); NEUTROPHILS % (AUTO) 90.2 % (43.0-81.0); PHOSPHORUS 3.7 mg/dL (2.5-4.9); PLATELET COUNT (AUTO) 222 /CMM (150-450); POTASSIUM 3.9 mmol/L (3.5-5.1); WHITE BLOOD COUNT (AUTO) 20.3 K/uL (4.3-11.0)
[2020-08-19 07:02] LABS: RED BLOOD CELL COUNT(AUTO) 1.85 MIL/uL (4.5-6.0)
[2020-08-19 07:03] LABS: HEMOGLOBIN 5.9 g/dL (13.5-17.5)
[2020-08-19 07:04] LABS: HEMATOCRIT 20 % (39-51)
--- NOTE | 2020-08-19 07:27 | NUR ---
PT ON BED SEDATED WITH PROPOFOL @ 100MCG/KG/MIN AND FENTANYL 55 MCG/HR, STILL ON ETT/VENT SETTING PER MD FIO2 70% SPO2 92% AND ON SADI 3 MCG/KG/MIN AND LEVOPHED 0.2 MCG/KG/MIN NO SIGNIFICANT CHANGES ON CONDITION NOTED, ALL NEEDS ATTENDED BED ON LOWEST POSITION AND LOCKED SIDE RAILS UP X2 ENDORSED TO AM SHIFT NURSE
[2020-08-19 09:14] LABS: ABG BASE EXCESS 1.2 mmol/L; ABG OXYGEN SATURATION 89.1 % (92.0-98.5); ABG PCO2 77.9 mmHg (35.0-45.0); ABG PH 7.198 (7.350-7.450); ABG PO2 63.4 mmHg (75.0-100.0); AaDO2 315.3 mmHg; COHb 1.7 % (0.5-1.5); MetHb 0.3 % (0.0-1.5); O2Hb 87.3 % (94.0-97.0); SITE, ABG Right Radial; VENT MODE, BG AC 22 400 65% +10
[2020-08-19] MEDS: NOREPINEPHRINE 8 MG in IV NS 0.9% 242 ML IV PRN ×3 (09:33→20:19)
[2020-08-19] MEDS ORDERED: Sodium Bicarbonate 100 MEQ in IV D5W 1,000 ML IV PRN (10:00)
[2020-08-19 10:01] LABS: BAND % (MANUAL) 7 % (0.0-5.0); EOSINOPHILS % (MANUAL) 6 % (0-4); LYMPHOCYTES % (MANUAL) 4 % (16-48); MONOCYTES % (MANUAL) 2 % (0-11.0); MYELOCYTES % 1 % (0-0); NEUTROPHILS % (MANUAL) 80 (42-76)
[2020-08-19] MEDS: FOLIC ACID 1 MG TABLET GT SCH (10:45)
[2020-08-19] MEDS: PANTOPRAZOLE 40 MG VIAL IV SCH ×2 (10:45→20:36)
[2020-08-19] MEDS: Sodium Bicarbonate 100 MEQ in IV D5W 1,000 ML IV SCH (10:59)
[2020-08-19] MEDS ORDERED: FENTANYL CITRATE IV 1,250 MCG in IV NS 0.9% 225 ML IV PRN (17:00)
[2020-08-19] MEDS ORDERED: FENTANYL CITRAT IV 2,500 MCG in IV NS 0.9% 200 ML IV PRN (17:30)
--- NOTE | 2020-08-19 19:30 | NUR ---
RECEIVED PT ON BED SEDATED ON ETT/VENT SETTING PER MD, SPO2 92% NO SIGN OF DISTRESS, NO PAIN NOTED TELE MONITOR READS SINUS RHYTHM 90'S, HAVE GTUBE ON PLACE, PLACEMENT WAS CHECKED AND VERIFIED , 80ML RESIDUAL NOTED, FEEDING RESUME WITH JEVITY @ 45ML/ HOUR, HAVE ALEKSANDAR MIDLINE WITH ONGOING SADI @ 3MCG/KG/MIN LEVO @ 0.4 MCG/KG/MIN DIPRIVAN @ 100MCG/KG/MIN INFUSING WELL AND FENTANYL 55MCG/KG AND NS Na HCO3 @ 50ML/HR INFUSING WELL AND R EXT JUGULAR IV @22 PATENT AND FLUSHED, HAVE COFFMAN CATHETER WITH YELLOW URINE DRAINING VIA GRAVITY, PT IS JEHOVAH WITNESSES AND PER MU-ISM THEY DONT ACCEPT BLOOD TRANSFUSION, BED ON LOWEST POSITION AND LOCKED SIDE RAILS UP X2 WILL CONT TO MONITOR
[2020-08-19] MEDS ORDERED: PHENYLEPHRINE 10 MG/ML VIAL ONE (20:09)
[2020-08-20] VITALS (63 sets, daily range): BP systolic 48–189; BP diastolic 25–75
[2020-08-20] MEDS: NOREPINEPHRINE 8 MG in IV NS 0.9% 242 ML IV PRN ×3 (00:30→08:39)
[2020-08-20] MEDS: PROPOFOL 100 ML IV PRN ×5 (01:46→13:05)
[2020-08-20] MEDS: VANCOMYCIN 1 GM in IV D5W 250ml IV SCH (03:00)
--- NOTE | 2020-08-20 03:21 | NUR ---
MERRITT DUE @ 0300 NON ADMIN DUE TO MERRITT TROUGH OF 23 WILL CONT TO MONITOR THE PT
[2020-08-20] MEDS: MEROPENEM 1 G in IV NS 0.9% 100 ML IV SCH ×2 (04:27→13:06)
[2020-08-20] MEDS ORDERED: PHENYLEPHRINE 10 MG/ML VIAL ONE (04:39)
[2020-08-20] MEDS ORDERED: NOREPINEPHRINE 8MG/250ML RTU 250 ML IV ONE (04:39)
[2020-08-20] MEDS: PHENYLEPHRINE 100 MG in IV NS 0.9% 240 ML IV PRN (04:48)
[2020-08-20 05:34] LABS: ABG BASE EXCESS -2.2 mmol/L; ABG OXYGEN SATURATION 93.3 % (92.0-98.5); ABG PCO2 80.1 mmHg (35.0-45.0); ABG PH 7.141 (7.350-7.450); ABG PO2 74.3 mmHg (75.0-100.0); AaDO2 375.4 mmHg; COHb 2.4 % (0.5-1.5); MetHb 0.3 % (0.0-1.5); O2Hb 90.8 % (94.0-97.0); PEEP,BG 10 cm H2O; SITE, ABG Left Radial; VT, ABG 400 mL
--- NOTE | 2020-08-20 05:45 | NUR ---
RELAYED TO DR MCGOVERN THE RESULT OF ABG WITH ORDER INCREASE TIDAL VOLUME TO 430 AND GIVE 2 AMP HCO3 AND REPEAT ABG AFTER 2 HRS NOTED AND CARRIED OUT
[2020-08-20] MEDS ORDERED: SODIUM BICARBONATE SYR 50 MEQ/50 ML DISP.SYRIN IV ONE (06:00)
[2020-08-20] MEDS: Sodium Bicarbonate 100 MEQ in IV D5W 1,000 ML IV SCH (06:31)
--- NOTE | 2020-08-20 08:20 | NUR ---
PT ON BED SEDATED WITH PROPOFOL @ 100MCG/KG/MIN AND FENTANYL 70 MCG/HR, STILL ON ETT/VENT SETTING PER MD FIO2 75% SPO2 92% AND ON SADI 3 MCG/KG/MIN AND LEVOPHED 0.5 MCG/KG/MIN NO SIGNIFICANT CHANGES ON CONDITION NOTED, ALL NEEDS ATTENDED BED ON LOWEST POSITION AND LOCKED SIDE RAILS UP X2 ENDORSED TO AM SHIFT NURSE
[2020-08-20] MEDS: PANTOPRAZOLE 40 MG VIAL IV SCH (08:34)
[2020-08-20] MEDS: FOLIC ACID 1 MG TABLET GT SCH (08:34)
[2020-08-20 08:41] LABS: ABG BASE EXCESS 3.6 mmol/L; ABG OXYGEN SATURATION 98.2 % (92.0-98.5); ABG PCO2 83.7 mmHg (35.0-45.0); ABG PH 7.201 (7.350-7.450); ABG PO2 113.6 mmHg (75.0-100.0); AaDO2 405.6 mmHg; MetHb 0.2 % (0.0-1.5); SITE, ABG Right Radial; VENT MODE, BG AC22 430 85% +10
[2020-08-20] MEDS ORDERED: PROSOURCE / PROSTAT (PYXIS) 30 ML UDC GT SCH (09:00)
[2020-08-20] MEDS ORDERED: JEVITY 1.2 CAL 1,000 ML BOTTLE GT PRN (10:00)
[2020-08-20] MEDS ORDERED: NOREPINEPHRINE 32 MG in IV NS 0.9% 218 ML IV PRN (12:30)
[2020-08-20 12:46] LABS: BASOPHILS % (AUTO) 0.2 % (0.0-2.0); EOSINOPHILS % (AUTO) 2.7 % (0.0-6.0); LYMPHOCYTES # (AUTO) 0.5 /CMM (0.8-4.8); LYMPHOCYTES % (AUTO) 2.6 % (20.0-44.0); MEAN CORPUSCULAR HGB CONC 31 g/dl (31.0-36.0); MEAN CORPUSCULAR VOLUME 109 fL (80-96); MONOCYTES # (AUTO) 0.2 /CMM (0.1-1.30); MONOCYTES % (AUTO) 1.2 % (2.0-12.0); NEUTROPHILS # (AUTO) 16.6 /CMM (1.8-8.9); NEUTROPHILS % (AUTO) 93.3 % (43.0-81.0); PLATELET COUNT (AUTO) 160 /CMM (150-450); WHITE BLOOD COUNT (AUTO) 17.8 K/uL (4.3-11.0)
[2020-08-20 12:52] LABS: BILIRUBIN,URINE NEGATIVE (NEGATIVE); COLOR,URINE YELLOW (YELLOW); LEUKOCYTE ESTERASE ,URINE NEGATIVE (NEGATIVE); NITRITE, URINE NEGATIVE (NEGATIVE); PROTEIN,URINE 30 mg/dl (NEGATIVE); UGLUCOSE NEGATIVE (NEGATIVE); UROBILINOGEN,URINE 0.2 EU/dL (0.2)
[2020-08-20 13:24] LABS: RED BLOOD CELL COUNT(AUTO) 1.59 MIL/uL (4.5-6.0)
[2020-08-20 13:30] LABS: HEMATOCRIT 17 % (39-51); HEMOGLOBIN 5.4 g/dL (13.5-17.5)
[2020-08-20 13:34] LABS: CALCIUM, SERUM 6.8 mg/dL (8.5-10.1); CREATININE 1.5 mg/dL (0.6-1.3); POTASSIUM 3.8 mmol/L (3.5-5.1)
[2020-08-20] MEDS ORDERED: EPINEPHRINE (1:10,000) SYRINGE 1 MG/10 ML DISP.SYRIN ONE (14:00)
[2020-08-20] MEDS ORDERED: SODIUM BICARBONATE SYR 50 MEQ/50 ML DISP.SYRIN ONE (14:00)
[2020-08-20] MEDS ORDERED: ATROPINE SULFATE 1 MG/10 ML DISP.SYRIN ONE (14:00)
--- NOTE | 2020-08-20 14:15 | NUR ---
RN NOTE PT MADE DNR STATUS. FOUND PT APNEIC, ASYSTOLIC, AREFLEXIVE. PRONOUNCED AT 1414. C. CONSTANCE DNP IN ATTENDANCE. FAMILY NOTIFIED BY PHONE.
--- NOTE | 2020-08-20 14:23 | NUR ---
PT FAMILY NOTIFIED OF PT AT 1414 BY PHONE
--- NOTE | 2020-08-20 14:42 | NUR ---
[facility] NOTIFIED, REFERRAL NUMBER [id number]
[2020-08-20 16:17] LABS: BACTERIA,URINE None seen /HPF (None Seen); FINE GRANULAR CASTS,URINE Few /LPF (None Seen); RBC,URINE 0-2 /HPF (0-2); SQUAMOUS EPITHELIAL CELL,UR 0-2 /HPF (None Seen); URINE AMORPHOUS URATE Few /HPF (None Seen); WBC,URINE 0-2 /HPF (0-3)
[2020-08-20 20:59] LABS: BAND % (MANUAL) 15 % (0.0-5.0); EOSINOPHILS % (MANUAL) 2 % (0-4); LYMPHOCYTES % (MANUAL) 5 % (16-48); MONOCYTES % (MANUAL) 1 % (0-11.0); NEUTROPHILS % (MANUAL) 77 (42-76)
[2020-08-22] MEDS ORDERED: EPOETIN ALFA (20,000 UNIT) 20,000 UNIT/ML VIAL SQ SCH (16:00)
== END 2020-08-20 16:48 | disposition expired | DRG 870 ==
LOC: ER 20:25 → TRANSITION 07-18 06:15 → TELE2 07-19 05:53 → ICU 08-01 16:58
PROVIDERS: ATTEND Nurse Practitioner Acute Care
PROC: XW033E5 Introduction of Remdesivir Anti-infective into Peripheral Vein, Percutaneous Approach, New Technology Group 5 (ICD-10-PCS; principal; 2020-07-18)
PROC: 5A1955Z Respiratory Ventilation, Greater than 96 Consecutive Hours (ICD-10-PCS; 2020-08-05)
PROC: 0BH18EZ Insertion of Endotracheal Airway into Trachea, Via Natural or Artificial Opening Endoscopic (ICD-10-PCS; 2020-08-05)
PROC: 02HV33Z Insertion of Infusion Device into Superior Vena Cava, Percutaneous Approach (ICD-10-PCS; 2020-08-05)
PROC: B548ZZA Ultrasonography of Superior Vena Cava, Guidance (ICD-10-PCS; 2020-08-05)
PROC: 5A12012 Performance of Cardiac Output, Single, Manual (ICD-10-PCS; 2020-08-20)
DX: A41.89 Other specified sepsis (principal); U07.1 COVID-19; J96.01 Acute respiratory failure with hypoxia; R65.21 Severe sepsis with septic shock; I21.4 Non-ST elevation (NSTEMI) myocardial infarction; J12.82 Pneumonia due to coronavirus disease 2019; Z51.5 Encounter for palliative care; J15.9 Unspecified bacterial pneumonia; G93.40 Encephalopathy, unspecified; J98.11 Atelectasis; J93.83 Other pneumothorax; E87.4 Mixed disorder of acid-base balance; E87.1 Hypo-osmolality and hyponatremia; D53.9 Nutritional anemia, unspecified; D69.6 Thrombocytopenia, unspecified; E87.6 Hypokalemia; I10 Essential (primary) hypertension; Z66 Do not resuscitate; L40.9 Psoriasis, unspecified; E05.90 Thyrotoxicosis, unspecified without thyrotoxic crisis or storm; K76.0 Fatty (change of) liver, not elsewhere classified
CPT/HCPCS: 31720; 36415; 36600; 71045-TC; 76700-TC; 80048-TC; 80053-TC; 80061-TC; 80076-TC; 80202-TC; 81001; 82248-TC; 82272-TC; 82533; 82550-TC; 82553; 82728-TC; 82784; 82803-TC; 82962-TC; 83540-TC; 83605-TC; 83615-TC; 83735-TC; 83880; 84100-TC; 84155; 84165; 84439-TC; 84443-TC; 84478-TC; 84481; 84484-TC; 85025-TC; 85378-TC; 85385-TC; 85396; 85610-TC; 85730-TC; 86022; 86140-TC; 86225; 86235; 86334; 86431-TC; 86706; 86803; 86850-TC; 87040-TC; 87070-TC; 87081-TC; 87086-TC; 87340; 92950-TC; 93307-TC; 94002-TC; 94003-TC; 94640-TC; 94760-TC; 94762-TC; 94799-TC; A4216; A4217; A4349; A4623; C1750; C9113; C9803; G0378; J0171; J0330; J0456; J0461; J0692; J0696; J0885; J1100; J1650; J1720; J2060; J2185; J2370; J2997; J3010; J3370; J3480; J3490; J7030; J7040; J7042; J7050; J7060; J7070; Q0162; U0003